=== PATIENT | female | born 1950 | race Caucasian/White ===

== ENCOUNTER 2020-12-23 21:35 | Inpatient (IN) | payer BC, MEDICARE ==
[~2020-12-23] VITALS: Ht 162.6 cm; Wt 83.0 kg
--- NOTE | 2020-12-23 22:05 | NUR ---
ED Nurse Note: Pt came in through ambulatory triage/wheelchair complaints of right hip pain from fall, AOx4, vitals stable ambulatory with moderate assitance
[2020-12-23 22:16] VITALS: BP 144/75
--- NOTE | 2020-12-23 22:20 | Emergency Room Report ---
History of Present Illness General Chief Complaint: Multiple Trauma/Fall Source: Patient Present Illness HPI 70-year-old female with no relevant past medical history here with right hip pain after a mechanical fall. Patient says that she tripped over a curb and landed on her right hip about 3 hours prior to come to the emergency department. She was able to stand up with assistance and get into her car and drive home. Says that she was able to stand and walk at home with the help of a walker but is having excruciating right hip pain. She never hit her head or had loss of consciousness. She is adamant that this was a mechanical fall. No headache, vision change, syncope, presyncope, chest pain, palpitation, shortness of breath, back pain, abdominal pain, nausea, vomiting, diarrhea, dysuria, focal numbness or weakness. Allergies: Coded Allergies: No Known Allergies (Unverified , 12/23/20) COVID-19 Screening Contact w/high risk pt: No Experienced COVID-19 symptoms?: No COVID-19 Testing performed CAGE CASHIER: No Nursing Documentation-[facility] Past Medical History: No Stated History Review of Systems All Other Systems: negative except mentioned in HPI Physical Exam Vital Signs Date Time Temp Pulse Resp B/P (MAP) Pulse Ox O2 Delivery O2 Flow Rate FiO2 12/23/20 22:10 98.1 103 18 144/75 (98) 98 Room Air Sp02 EP Interpretation: reviewed, normal General Appearance: no apparent distress, alert, non-toxic Head: normocephalic, atraumatic Eyes: bilateral eye normal inspection, bilateral eye PERRL ENT: hearing grossly normal, normal pharynx, no angioedema, normal voice Neck: full range of motion, supple/symm/no masses Respiratory: chest non-tender, lungs clear, normal breath sounds, speaking full sentences Cardiovascular #1: regular rate, rhythm, no edema Cardiovascular #2: 2+ carotid (R), 2+ carotid (L), 2+ radial (R), 2+ radial (L), 2+ dorsalis pedis (R), 2+ dorsalis pedis (L) Gastrointestinal: normal bowel sounds, non tender, soft, non-distended, no guarding, no rebound Rectal: deferred Genitourinary: normal inspection, no CVA tenderness Musculoskeletal: back normal, normal range of motion, gait/station normal, other - Tenderness on palpation of the right ASIS. Patient able to flex right hip with assistance. No leg shortening. Neurovascularly intact Neurologic: alert, motor strength/tone normal, oriented x3, sensory intact, responsive, speech normal Psychiatric: judgement/insight normal, memory normal, mood/affect normal, no suicidal/homicidal ideation Lymphatic: no adenopathy Medical Decision Making Diagnostic Impression: Primary Impression: Hip fracture, right ER Course X-ray right hip: Impression: Probable impacted right femoral neck fracture 70-year-old female here after mechanical fall. Patient complaining only of hip pain. Denied headache or head trauma or neck pain or neck stiffness. She was neurovascularly intact but complaining of right hip pain. X-ray revealed an impacted right femoral neck fracture. Patient was placed in a knee immobilizer. She was neurovascular intact before and after the knee immobilizer was placed. Patient to be admitted to [facility]. Last Vital Signs Date Time Temp Pulse Resp B/P (MAP) Pulse Ox O2 Delivery O2 Flow Rate FiO2 12/23/20 22:10 98.1 103 18 144/75 (98) 98 Room Air Referrals: NOT CHOSEN SEGUNDO/,REFERRING (PCP) Adrien Vilchis M.D. Dec 23, 2020 22:20
--- NOTE | 2020-12-23 22:34 | Diagnostic Imaging Report ---
EXAM: XR Right Hip With Pelvis When Performed, 2 or 3 Views CLINICAL HISTORY: PAIN TECHNIQUE: Two or three views of the right hip with pelvis when performed. COMPARISON: None FINDINGS: Bones/joints: There is a probable impacted right femoral neck fracture. The left hip joint appears maintained. No dislocation. Soft tissues: Unremarkable. IMPRESSION: Probable impacted right femoral neck fracture.
[2020-12-23] MEDS ORDERED: Morphine Sulfate 4mg/ml Inj (IV USE ONLY) IVP ONE (23:00)
--- NOTE | 2020-12-23 23:14 | NUR ---
ED Nurse Note: right Knee immobilizer placed
--- NOTE | 2020-12-23 23:32 | NUR ---
ED Nurse Note: Pblood specimen sent to lab
[2020-12-23 23:45] LABS: HEMATOCRIT 38.5 % (37.0-47.0); HEMOGLOBIN 12.8 G/DL (12.0-16.0); MEAN CORPUSCULAR VOLUME 101 FL (80-99); PLATELET COUNT 132 K/UL (150-450); RED BLOOD COUNT 3.83 M/UL (4.20-5.40); RED CELL DISTRIBUTION WIDTH 13.8 % (11.6-14.8)
[2020-12-23 23:56] LABS: ANION GAP 10 mmol/L (5-15); BLOOD UREA NITROGEN 28 mg/dL (7-18); CARBON DIOXIDE 26 MMOL/L (21-32); CHLORIDE 104 MMOL/L (98-107); CREATININE 0.9 MG/DL (0.55-1.30); POTASSIUM 3.9 MMOL/L (3.5-5.1); SODIUM 140 MMOL/L (136-145)
[2020-12-24] VITALS (14 sets, daily range): BP systolic 87–135; BP diastolic 50–74
[2020-12-24 00:06] LABS: ALANINE AMINOTRANSFERASE 43 U/L (12-78); ALBUMIN 4.1 G/DL (3.4-5.0); ALBUMIN/GLOBULIN RATIO 1.2 (1.0-2.7); ALKALINE PHOSPHATASE 125 U/L (46-116); ASPARTATE AMINO TRANSFERASE 32 U/L (15-37); BILIRUBIN,TOTAL 1.5 MG/DL (0.2-1.0)
[2020-12-24 00:08] LABS: BILIRUBIN,DIRECT 0.4 MG/DL (0.0-0.3)
--- NOTE | 2020-12-24 00:23 | NUR ---
TRANSFER TO FLOOR: Patient transferred to [facility] as ordered, per MD . Report given to Jenni. Belongings and medications at patient bedside declined offer to put in hospital safe, personal belongings form signed and sent with chart
--- NOTE | 2020-12-24 01:00 | NUR ---
Note bello in ED - 12/24/20 at 0140 by MARIEL TRANSFER TO FLOOR: Patient transferred to as ordered med surg, per MD . Report given to Jenni. Belongings and medications given sent with patient belongings form filled and signed sent with chart
--- NOTE | 2020-12-24 01:30 | NUR ---
NURSE NOTES: Left message for Dr Boston regarding patient's current level of pain. Patient requesting pain medication for right hip fracture. Patient aware we are awaiting call back from Dr Boston.
--- NOTE | 2020-12-24 03:05 | NUR ---
NURSE NOTES: Charge nurse left message for Dr Godoy regarding patient's current pain level. Still no call back from Dr Boston. Patient aware we are awaiting call back from both Dr Godoy and Dr Boston.
[2020-12-24 07:31] LABS: HEMATOCRIT 34.3 % (37.0-47.0); HEMOGLOBIN 11.3 G/DL (12.0-16.0); MEAN CORPUSCULAR VOLUME 100 FL (80-99); PLATELET COUNT 109 K/UL (150-450); RED BLOOD COUNT 3.42 M/UL (4.20-5.40); RED CELL DISTRIBUTION WIDTH 14.1 % (11.6-14.8); WHITE BLOOD COUNT 2.2 K/UL (4.8-10.8)
[2020-12-24 07:33] LABS: ALANINE AMINOTRANSFERASE 37 U/L (12-78); ALBUMIN 3.4 G/DL (3.4-5.0); ALBUMIN/GLOBULIN RATIO 1.1 (1.0-2.7); ALKALINE PHOSPHATASE 103 U/L (46-116); ANION GAP 9 mmol/L (5-15); ASPARTATE AMINO TRANSFERASE 30 U/L (15-37); BILIRUBIN,TOTAL 1.6 MG/DL (0.2-1.0); BLOOD UREA NITROGEN 26 mg/dL (7-18); CALCIUM 9.2 MG/DL (8.5-10.1); CARBON DIOXIDE 27 MMOL/L (21-32); CHLORIDE 105 MMOL/L (98-107); CREATININE 0.7 MG/DL (0.55-1.30); POTASSIUM 4.1 MMOL/L (3.5-5.1); SODIUM 141 MMOL/L (136-145)
[2020-12-24 07:36] LABS: BILIRUBIN,DIRECT 0.3 MG/DL (0.0-0.3)
--- NOTE | 2020-12-24 07:38 | NUR ---
NURSE NOTES: Report given to ALLY Farmer
--- NOTE | 2020-12-24 08:36 | Consultation ---
History of Present Illness General Date patient seen: Dec 24, 2020 Chief Complaint: Present Illness Allergies: Coded Allergies: No Known Allergies (Unverified , 12/23/20) Patient History Healthcare decision maker Resuscitation status Advanced Directive on File Physical Exam Last 24 Hour Vital Signs Date Time Temp Pulse Resp B/P (MAP) Pulse Ox O2 Delivery O2 Flow Rate FiO2 12/24/20 04:00 97.9 90 19 116/65 (82) 94 12/24/20 03:25 Room Air 12/24/20 02:21 97.9 12/24/20 01:35 97.9 96 19 135/74 (94) 94 12/23/20 23:49 98.1 12/23/20 22:16 98.1 18 144/75 98 Room Air 12/23/20 22:16 103 18 Room Air 12/23/20 22:10 98.1 103 18 144/75 (98) 98 Room Air Laboratory Tests Test 12/23/20 23:28 12/24/20 05:50 White Blood Count 3.0 K/UL (4.8-10.8) L 2.2 K/UL (4.8-10.8) L Red Blood Count 3.83 M/UL (4.20-5.40) L 3.42 M/UL (4.20-5.40) L Hemoglobin 12.8 G/DL (12.0-16.0) 11.3 G/DL (12.0-16.0) L Hematocrit 38.5 % (37.0-47.0) 34.3 % (37.0-47.0) L Mean Corpuscular Volume 101 FL (80-99) H 100 FL (80-99) H Mean Corpuscular Hemoglobin 33.4 PG (27.0-31.0) H 33.1 PG (27.0-31.0) H Mean Corpuscular Hemoglobin Concent 33.2 G/DL (32.0-36.0) 33.0 G/DL (32.0-36.0) Red Cell Distribution Width 13.8 % (11.6-14.8) 14.1 % (11.6-14.8) Platelet Count 132 K/UL (150-450) L 109 K/UL (150-450) L Mean Platelet Volume 7.7 FL (6.5-10.1) 8.6 FL (6.5-10.1) Neutrophils (%) (Auto) % (45.0-75.0) % (45.0-75.0) Lymphocytes (%) (Auto) % (20.0-45.0) % (20.0-45.0) Monocytes (%) (Auto) % (1.0-10.0) % (1.0-10.0) Eosinophils (%) (Auto) % (0.0-3.0) % (0.0-3.0) Basophils (%) (Auto) % (0.0-2.0) % (0.0-2.0) Sodium Level 140 MMOL/L (136-145) 141 MMOL/L (136-145) Potassium Level 3.9 MMOL/L (3.5-5.1) 4.1 MMOL/L (3.5-5.1) Chloride Level 104 MMOL/L (98-107) 105 MMOL/L (98-107) Carbon Dioxide Level 26 MMOL/L (21-32) 27 MMOL/L (21-32) Anion Gap 10 mmol/L (5-15) 9 mmol/L (5-15) Blood Urea Nitrogen 28 mg/dL (7-18) H 26 mg/dL (7-18) H Creatinine 0.9 MG/DL (0.55-1.30) 0.7 MG/DL (0.55-1.30) Estimat Glomerular Filtration Rate > 60 mL/min (>60) > 60 mL/min (>60) Glucose Level 110 MG/DL (74-106) H 106 MG/DL (74-106) Calcium Level 10.0 MG/DL (8.5-10.1) 9.2 MG/DL (8.5-10.1) Total Bilirubin 1.5 MG/DL (0.2-1.0) H 1.6 MG/DL (0.2-1.0) H Direct Bilirubin 0.4 MG/DL (0.0-0.3) H 0.3 MG/DL (0.0-0.3) Aspartate Amino Transf (AST/SGOT) 32 U/L (15-37) 30 U/L (15-37) Alanine Aminotransferase (ALT/SGPT) 43 U/L (12-78) 37 U/L (12-78) Alkaline Phosphatase 125 U/L (46-116) H 103 U/L (46-116) Total Protein 7.6 G/DL (6.4-8.2) 6.6 G/DL (6.4-8.2) Albumin 4.1 G/DL (3.4-5.0) 3.4 G/DL (3.4-5.0) Globulin 3.5 g/dL 3.2 g/dL Albumin/Globulin Ratio 1.2 (1.0-2.7) 1.1 (1.0-2.7) Neutrophils % (Manual) Pending Lymphocytes % (Manual) Pending Platelet Estimate Pending Platelet Morphology Pending Height (Feet): 5 Height (Inches): 5.00 Weight (Pounds): 170 Medications Current Medications Medications (Trade) Dose Ordered Sig/Jamie Route PRN Reason Start Time Stop Time Status Last Admin Dose Admin Acetaminophen (Tylenol) 650 mg Q4H PRN ORAL Mild Pain (Pain Scale 1-3) 12/24/20 01:45 01/23/21 01:44 12/24/20 01:51 Sodium Chloride 1,000 ml @ 70 mls/hr [id number] IV 12/24/20 08:00 01/23/21 07:59 Assessment/Plan Assessment/Plan: (1) Right hip pain (2) Right hip fx s/p fall seen dictated Roberto Carlos Perry Dec 24, 2020 08:36
[2020-12-24] MEDS ORDERED: HYDROcodone/Acetamin 5/325 tab ORAL PRN ×2 (08:45→15:45)
[2020-12-24] MEDS: Morphine Sulfate 2mg/ml Inj(IV/IM USE ONLY) IVP PRN ×3 (08:54→21:17)
--- NOTE | 2020-12-24 13:31 | Cardiac Electrophysiology PN ---
Subjective Subjective [id number] Objective Last 24 Hour Vital Signs Date Time Temp Pulse Resp B/P (MAP) Pulse Ox O2 Delivery O2 Flow Rate FiO2 12/24/20 12:24 99.0 12/24/20 11:53 99.0 108 18 102/65 (77) 94 12/24/20 10:53 97.9 12/24/20 09:24 97.9 12/24/20 08:00 98.5 91 18 101/67 (78) 96 12/24/20 04:00 97.9 90 19 116/65 (82) 94 12/24/20 03:25 Room Air 12/24/20 02:21 97.9 12/24/20 01:35 97.9 96 19 135/74 (94) 94 12/23/20 23:49 98.1 12/23/20 22:16 98.1 18 144/75 98 Room Air 12/23/20 22:16 103 18 Room Air 12/23/20 22:10 98.1 103 18 144/75 (98) 98 Room Air Laboratory Tests Test 12/23/20 23:28 12/24/20 05:50 White Blood Count 3.0 K/UL (4.8-10.8) L 2.2 K/UL (4.8-10.8) L Red Blood Count 3.83 M/UL (4.20-5.40) L 3.42 M/UL (4.20-5.40) L Hemoglobin 12.8 G/DL (12.0-16.0) 11.3 G/DL (12.0-16.0) L Hematocrit 38.5 % (37.0-47.0) 34.3 % (37.0-47.0) L Mean Corpuscular Volume 101 FL (80-99) H 100 FL (80-99) H Mean Corpuscular Hemoglobin 33.4 PG (27.0-31.0) H 33.1 PG (27.0-31.0) H Mean Corpuscular Hemoglobin Concent 33.2 G/DL (32.0-36.0) 33.0 G/DL (32.0-36.0) Red Cell Distribution Width 13.8 % (11.6-14.8) 14.1 % (11.6-14.8) Platelet Count 132 K/UL (150-450) L 109 K/UL (150-450) L Mean Platelet Volume 7.7 FL (6.5-10.1) 8.6 FL (6.5-10.1) Neutrophils (%) (Auto) % (45.0-75.0) % (45.0-75.0) Lymphocytes (%) (Auto) % (20.0-45.0) % (20.0-45.0) Monocytes (%) (Auto) % (1.0-10.0) % (1.0-10.0) Eosinophils (%) (Auto) % (0.0-3.0) % (0.0-3.0) Basophils (%) (Auto) % (0.0-2.0) % (0.0-2.0) Sodium Level 140 MMOL/L (136-145) 141 MMOL/L (136-145) Potassium Level 3.9 MMOL/L (3.5-5.1) 4.1 MMOL/L (3.5-5.1) Chloride Level 104 MMOL/L (98-107) 105 MMOL/L (98-107) Carbon Dioxide Level 26 MMOL/L (21-32) 27 MMOL/L (21-32) Anion Gap 10 mmol/L (5-15) 9 mmol/L (5-15) Blood Urea Nitrogen 28 mg/dL (7-18) H 26 mg/dL (7-18) H Creatinine 0.9 MG/DL (0.55-1.30) 0.7 MG/DL (0.55-1.30) Estimat Glomerular Filtration Rate > 60 mL/min (>60) > 60 mL/min (>60) Glucose Level 110 MG/DL (74-106) H 106 MG/DL (74-106) Calcium Level 10.0 MG/DL (8.5-10.1) 9.2 MG/DL (8.5-10.1) Total Bilirubin 1.5 MG/DL (0.2-1.0) H 1.6 MG/DL (0.2-1.0) H Direct Bilirubin 0.4 MG/DL (0.0-0.3) H 0.3 MG/DL (0.0-0.3) Aspartate Amino Transf (AST/SGOT) 32 U/L (15-37) 30 U/L (15-37) Alanine Aminotransferase (ALT/SGPT) 43 U/L (12-78) 37 U/L (12-78) Alkaline Phosphatase 125 U/L (46-116) H 103 U/L (46-116) Total Protein 7.6 G/DL (6.4-8.2) 6.6 G/DL (6.4-8.2) Albumin 4.1 G/DL (3.4-5.0) 3.4 G/DL (3.4-5.0) Globulin 3.5 g/dL 3.2 g/dL Albumin/Globulin Ratio 1.2 (1.0-2.7) 1.1 (1.0-2.7) Differential Total Cells Counted 100 Neutrophils % (Manual) 67 % (45-75) Lymphocytes % (Manual) 27 % (20-45) Monocytes % (Manual) 1 % (1-10) Eosinophils % (Manual) 1 % (0-3) Basophils % (Manual) 0 % (0-2) Band Neutrophils 4 % (0-8) Platelet Estimate Decreased L Platelet Morphology Normal Anisocytosis 1+ Macrocytosis 1+ Microbiology Date/Time Source Procedure Growth Status 12/24/20 12:00 Nasopharynx SARS-CoV-2 Antigen (Rapid)(JANES) - Final Complete Xavier Duncan MD Dec 24, 2020 13:31
[2020-12-24] MEDS ORDERED: EPINEPHrine 1mg/1ml Amp ONE (15:14)
[2020-12-24] MEDS ORDERED: cloNIDine 1000mcg/10ml inj ONE (15:14)
[2020-12-24] MEDS ORDERED: Bupivacaine 0.5% Inj 30 ml vial INJ ONE (15:15)
[2020-12-24] MEDS ORDERED: NeoSporin Gu Irrig 1ml Amp IRRIG ONE (15:16)
[2020-12-24] MEDS ORDERED: Hydrogen Peroxide 473ml Bottle TOPIC ONE (15:16)
[2020-12-24] MEDS ORDERED: Bacitracin 50000 Units Vial ONE (15:16)
--- NOTE | 2020-12-24 15:33 | Pre-Procedure Note/Attestation ---
Pre-Procedure Note/Attestation Complete Prior to Procedure Planned Procedure: right Procedure Narrative: closed reduction percutanous pinning hip Indications for Procedure Pre-Operative Diagnosis: right valgus implacted femoral neck fracture Attestation I attest that I discussed the nature of the procedure; its benefits; risks and complications; and alternatives (and the risks and benefits of such alternatives), prior to the procedure, with the patient (or the patient's legal medical detail representative). I attest that, if there was a reasonable possibility of needing a blood transfusion, the patient (or the patient's legal medical detail representative) was given the [facility] standardized written summary, pursuant to the [employer] Blood Safety Act ([place] Health and Safety Code # 1645, as amended). I attest that I re-evaluated the patient just prior to the surgery and that there has been no change in the patient's H&P, except as documented below: Rashel Castle MD Dec 24, 2020 15:33
--- NOTE | 2020-12-24 15:33 | Operative Note - PDOC ---
Operative Note Operative Note Pre-op Diagnosis: right valgus implacted femoral neck fracture Procedure: see op report Post-op Diagnosis: same as pre-op plus Operative Findings: consistent w/pre-op dx studies Anesthesia: regional Specimen: none Complications: none Condition: stable Estimated Blood Loss: none Implant(s) used?: Yes Rashel Castle MD Dec 24, 2020 15:33
[2020-12-24] MEDS ORDERED: Midazolam 2mg/2ml Inj ONE (15:37)
[2020-12-24] MEDS ORDERED: ePHEDrine 50mg/ml Inj ONE (15:43)
[2020-12-24] MEDS ORDERED: HYDROcodone/Acetamin 7.5/325 tab ORAL PRN (15:45)
[2020-12-24] MEDS ORDERED: Labetalol 5mg/ml 20ml vial IV PRN (15:45)
[2020-12-24] MEDS ORDERED: Hydromorphone 0.5mg/0.5ml inj IVP PRN (15:45)
[2020-12-24] MEDS ORDERED: fentaNYL 100 mcg/2 mL IV PRN (15:45)
[2020-12-24] MEDS ORDERED: oxyCODONE 5mg IR tab ORAL PRN (15:45)
[2020-12-24] MEDS ORDERED: LR 1000ml 1,000 ML IVLG SCH (15:45)
[2020-12-24] MEDS ORDERED: Metoclopramide 10mg/2ml Inj IVP PRN (15:45)
[2020-12-24] MEDS ORDERED: oxyCODONE HCL/Acetaminophen 5/325mg ORAL PRN (15:45)
[2020-12-24] MEDS ORDERED: LORazepam Inj 2mg/ml 1ml IV PRN (15:45)
[2020-12-24] MEDS ORDERED: Morphine Sulfate 2mg/ml Inj(IV/IM USE ONLY) IVP PRN (15:45)
[2020-12-24] MEDS ORDERED: DiphenhydrAMINE 50mg/ml Inj IVP PRN (15:45)
[2020-12-24] MEDS ORDERED: Midazolam 2mg/2ml Inj IVP PRN (15:45)
[2020-12-24] MEDS ORDERED: Atropine Sulfate 0.4mg/ml inj IVP PRN (15:45)
[2020-12-24] MEDS ORDERED: Meperidine 25mg/1ml Inj (FOR RIGORS ONLY) IV PRN (15:45)
[2020-12-24] MEDS ORDERED: Milk of Magnesia 30ml Ud ORAL PRN (15:45)
--- NOTE | 2020-12-24 15:45 | Anethesia Preoperative Eval ---
Anesthesia Pre-op PMH/ROS General Date of Evaluation: Dec 24, 2020 Time of Evaluation: 13:31 Anesthesiologist: Tuyet ASA Score: ASA 3 Mallampati Score Class I : Soft palate, uvula, fauces, pillars visible Class II: Soft palate, uvula, fauces visible Class III: Soft palate, base of uvula visible Class IV: Only hard plate visible Mallampati Classification: Class II Surgeon: Tin Diagnosis: R Hip Pain Surgical Procedure: ORIF R Hip Anesthesia History: none Family History: no anesthesia problems Allergies: Coded Allergies: No Known Allergies (Unverified , 12/23/20) Medications: see eMAR Patient NPO?: Yes Past Medical History Hematology/Immune: Reports: anemia, other - [place] Other: obesity - BMI 33 Anesthesia Pre-op Phys. Exam Physician Exam Last Vital Signs Date Time Temp Pulse Resp B/P (MAP) Pulse Ox O2 Delivery O2 Flow Rate FiO2 12/24/20 14:10 99.0 12/24/20 11:53 108 18 102/65 (77) 94 12/24/20 09:00 Room Air Constitutional: NAD Neurologic: CN 2-12 intact Cardiovascular: RRR Respiratory: CTA Gastrointestinal: S/NT/ND Airway Exam Mallampati Score: Class II MO: limited ROM: limited Teeth: missing, intact Anesthesia Pre-op A/P Labs Hematology Test 12/23/20 23:28 12/24/20 05:50 White Blood Count 3.0 K/UL (4.8-10.8) L 2.2 K/UL (4.8-10.8) L Red Blood Count 3.83 M/UL (4.20-5.40) L 3.42 M/UL (4.20-5.40) L Hemoglobin 12.8 G/DL (12.0-16.0) 11.3 G/DL (12.0-16.0) L Hematocrit 38.5 % (37.0-47.0) 34.3 % (37.0-47.0) L Mean Corpuscular Volume 101 FL (80-99) H 100 FL (80-99) H Mean Corpuscular Hemoglobin 33.4 PG (27.0-31.0) H 33.1 PG (27.0-31.0) H Mean Corpuscular Hemoglobin Concent 33.2 G/DL (32.0-36.0) 33.0 G/DL (32.0-36.0) Red Cell Distribution Width 13.8 % (11.6-14.8) 14.1 % (11.6-14.8) Platelet Count 132 K/UL (150-450) L 109 K/UL (150-450) L Mean Platelet Volume 7.7 FL (6.5-10.1) 8.6 FL (6.5-10.1) Neutrophils (%) (Auto) % (45.0-75.0) % (45.0-75.0) Lymphocytes (%) (Auto) % (20.0-45.0) % (20.0-45.0) Monocytes (%) (Auto) % (1.0-10.0) % (1.0-10.0) Eosinophils (%) (Auto) % (0.0-3.0) % (0.0-3.0) Basophils (%) (Auto) % (0.0-2.0) % (0.0-2.0) Differential Total Cells Counted 100 Neutrophils % (Manual) 67 % (45-75) Lymphocytes % (Manual) 27 % (20-45) Monocytes % (Manual) 1 % (1-10) Eosinophils % (Manual) 1 % (0-3) Basophils % (Manual) 0 % (0-2) Band Neutrophils 4 % (0-8) Platelet Estimate Decreased L Platelet Morphology Normal Anisocytosis 1+ Macrocytosis 1+ Chemistry Test 12/23/20 23:28 12/24/20 05:50 Sodium Level 140 MMOL/L (136-145) 141 MMOL/L (136-145) Potassium Level 3.9 MMOL/L (3.5-5.1) 4.1 MMOL/L (3.5-5.1) Chloride Level 104 MMOL/L (98-107) 105 MMOL/L (98-107) Carbon Dioxide Level 26 MMOL/L (21-32) 27 MMOL/L (21-32) Anion Gap 10 mmol/L (5-15) 9 mmol/L (5-15) Blood Urea Nitrogen 28 mg/dL (7-18) H 26 mg/dL (7-18) H Creatinine 0.9 MG/DL (0.55-1.30) 0.7 MG/DL (0.55-1.30) Estimat Glomerular Filtration Rate > 60 mL/min (>60) > 60 mL/min (>60) Glucose Level 110 MG/DL (74-106) H 106 MG/DL (74-106) Calcium Level 10.0 MG/DL (8.5-10.1) 9.2 MG/DL (8.5-10.1) Total Bilirubin 1.5 MG/DL (0.2-1.0) H 1.6 MG/DL (0.2-1.0) H Direct Bilirubin 0.4 MG/DL (0.0-0.3) H 0.3 MG/DL (0.0-0.3) Aspartate Amino Transf (AST/SGOT) 32 U/L (15-37) 30 U/L (15-37) Alanine Aminotransferase (ALT/SGPT) 43 U/L (12-78) 37 U/L (12-78) Alkaline Phosphatase 125 U/L (46-116) H 103 U/L (46-116) Total Protein 7.6 G/DL (6.4-8.2) 6.6 G/DL (6.4-8.2) Albumin 4.1 G/DL (3.4-5.0) 3.4 G/DL (3.4-5.0) Globulin 3.5 g/dL 3.2 g/dL Albumin/Globulin Ratio 1.2 (1.0-2.7) 1.1 (1.0-2.7) Risk Assessment & Plan Assessment: ASA 3 Plan: TIVA, Spinal Status Change Before Surgery: No Pre-Antibiotics Dru Gram Ancef IV Given Within 1 Hr of Incision: Yes Time Given: 16:01 Aldo Benz MD Dec 24, 2020 15:45
--- NOTE | 2020-12-24 15:47 | NUR ---
NURSE NOTES: patient is being transported to surgery unit, VS stable except subfebrile 99.0F and HR 102. Patient couldn't take off rings as she has hand slightly swollen. Patient was cleared by cardiology dr Duncan for surgery. Patient signed consent for surgery and blood transfusion in case it's needed.
[2020-12-24] MEDS ORDERED: Ketorolac 30mg Inj ONE (15:53)
[2020-12-24] MEDS ORDERED: Kenalog-40 1ml Vial ONE (15:53)
[2020-12-24] MEDS ORDERED: Bupivacaine w/Epi 0.25% 50ml vial INJ ONE (15:54)
[2020-12-24] MEDS ORDERED: Duramorph PF 5mg/10ml amp ONE (15:54)
[2020-12-24] MEDS ORDERED: NS Irrig 1000ml ONE (16:00)
[2020-12-24] MEDS ORDERED: Lidocaine 1% MPF 10mg/ml 5ml ONE (16:00)
[2020-12-24] MEDS ORDERED: Sterile Water Irrig 1000ml IRRIG ONE (16:00)
[2020-12-24] MEDS ORDERED: LR 1000ml ONE (16:00)
--- NOTE | 2020-12-24 16:07 | NUR ---
STOCK TRACERHAT BLOCK BENCH HAND 70 YO FEMALE FROM HOME TO ER CC RIGHT HIP PAIN S/P FALL SI: FEMORAL NECK FRACTURE T. 98.6 HR 105 RR 18 B/P 120/49 BUN 28 ALK PHOS 125 WBC 3.0 RIGHT FEMUR XRAY= Probable impacted right femoral neck fracture. IS: MORPHINE IV ADMITTED TO MED/SURG @ 0100 MED/SURG STATUS DCP RETURN HOME
--- NOTE | 2020-12-24 17:06 | Immediate Post-Op Evaluation ---
Immediate Post-Op Evalulation Immediate Post-Op Evalulation Procedure: ORIF R Hip Date of Evaluation: Dec 24, 2020 Time of Evaluation: 17:24 IV Fluids: 500 LR Blood Products: 0 Estimated Blood Loss: 50 Urinary Output: 0 Blood Pressure Systolic: 87 Blood Pressure Diastolic: 50 Pulse Rate: 99 Respiratory Rate: 16 O2 Sat by Pulse Oximetry: 95 Temperature (Fahrenheit): 98.1 Pain Score (1-10): 1 Nausea: No Vomiting: No Complications 0 Patient Status: awake, reacts, patent, none Hydration Status: adequate Dru Gram Ancef IV Given Within 1 Hr of Incision: Yes Time Given: 16:01 Aldo Benz MD Dec 24, 2020 17:06
--- NOTE | 2020-12-24 17:08 | 48 Hour Post Anesthesia Eval ---
Post Anesthesia Evaluation Procedure: ORIF R Hip Date of Evaluation: Dec 24, 2020 Time of Evaluation: 19:36 Blood Pressure Systolic: 105 0: 62 Pulse Rate: 83 Respiratory Rate: 18 Temperature (Fahrenheit): 98.3 O2 Sat by Pulse Oximetry: 100 Airway: patent Nausea: No Vomiting: No Pain Intensity: 1 Hydration Status: adequate Cardiopulmonary Status: Stable Mental Status/LOC: patient returned to baseline Follow-up Care/Observations: 0 Post-Anesthesia Complications: 0 Follow-up care needed: N/A Aldo Benz MD Dec 24, 2020 17:08
--- NOTE | 2020-12-24 18:50 | NUR ---
NURSE NOTES: report given to Dimitri CANALES from Tele, pt in room 210/2. Belongings checked against belongings list. Patient in NAD, lying in bed supine.
--- NOTE | 2020-12-24 19:15 | NUR ---
NURSE NOTES: recieved report from Hamida CANALES and 4E floor nurse. pt transferred from surgery. theodore catheter in place, R AC 20g, on educational psychologist and NC 3L. pt belongings accounted for in pt bed room with 4E floor nurse. vital signs 98.6 72 18 136/77 9 Addendum: 12/24/20 at 1920 by Dimitri Blanco RN 96% NC 3L, no pain. Endorsed by Hamida CANALES: Dc planning for tomorrow, DC arben when pt can ambulate, neuro check, adn regular diet. advance from clear liquids as ordered
--- NOTE | 2020-12-24 20:15 | NUR ---
NURSE NOTES: Received report from ALLY Mosley. Pt is awake, A/Ox4, no signs of acute distress. SR on lunchroom monitor. SpO2 100% on NC 3L. Breathing is even and unlabored. Knowles is intact and draining well to gravity matilde urine. R AC 20g is intact and running D5 1/2 NS KCl 20meq at 75cc/hr. Pt is complaining of pain 6/10 at the surgical site. Pain meds will be given. HOB elevated, side rails x2, call light within reach, bed alarmed, locked, and in lowest position. Will continue plan of care. Will continue to monitor.
--- NOTE | 2020-12-24 20:29 | Consultation ---
DATE OF CONSULTATION: 12/23/2020 CHIEF COMPLAINT: Right hip pain. HISTORY OF PRESENT ILLNESS: The patient is a 70-year-old female, who presented after a mechanical fall with right hip pain. She subsequently is diagnosed with femoral neck fracture. Orthopedic consultation was obtained for further care and recommendation. PAST MEDICAL HISTORY: Reviewed per intake chart. PAST SURGICAL HISTORY: Reviewed per intake chart. MEDICATIONS: Reviewed per intake chart. PHYSICAL EXAMINATION: GENERAL: Shows the patient is alert and oriented. She is resting comfortably on the exam room bed. VITAL SIGNS: Afebrile with stable vital signs. EXTREMITIES: Right hip examination shows pain with internal and external rotation. Positive sign. Posterior calf is soft. Dorsalis pedis +2. IMAGING: Right hip series reviewed did show a valgus-impacted femoral neck fracture. ASSESSMENT: Right valgus-impacted femoral neck fracture. DISCUSSION: At this point, what I recommend is to go ahead and proceed with closed reduction and percutaneous pinning of the right hip. We will admit her in anticipation of surgery tomorrow. She is going to be medically optimized. We will go ahead and arrange surgery for tomorrow. Alternatives discussed with the patient. All questions addressed. Rashel Castle M.D. DR: ALINE JOB#: [id number] CC:
--- NOTE | 2020-12-24 20:44 | Consultation ---
DATE OF CONSULTATION: 12/24/2020 CARDIOLOGY CONSULTATION CONSULTING PHYSICIAN: Xavier Duncan MD REFERRING PHYSICIAN: Lynne Godoy MD REASON FOR CONSULTATION: Preoperative clearance prior to hip surgery. HISTORY OF PRESENT ILLNESS: The patient is a 70-year-old lady with no significant past medical history who presented with right hip after a mechanical fall. Apparently, the patient tripped over a curb and landed on her right hip about three hours prior to coming to the emergency room. She was able to stand up with assist and get in the car and drive home. She apparently was able to stand and walk at home with help of a walker, but she was having excruciating right hip pain. Denies loss of consciousness, prior myocardial infarction, coronary artery disease, hypertension, or diabetes. The patient was evaluated in the emergency room, was found to have impacted right femoral neck fracture. Cardiology consultation was requested for preoperative clearance prior to hip surgery. REVIEW OF SYSTEMS: Negative other than what was mentioned in the history of present illness. PAST MEDICAL HISTORY: As mentioned above. FAMILY HISTORY: Noncontributory. SOCIAL HISTORY: She lives at home. Does not smoke or drink alcohol. PHYSICAL EXAMINATION: VITAL SIGNS: Show a blood pressure of 102/65, pulse is 108, respirations 18, and temperature 99. HEAD AND NECK: Showed no JVD. LUNGS: Clear. CARDIOVASCULAR: Regular S1 and S2 with no gallop or murmur. ABDOMEN: Soft. EXTREMITIES: No pitting edema. LABORATORY AND DIAGNOSTIC DATA: Her labs show white count 2.2, hemoglobin 11.7, hematocrit 34.3, and platelet count of 109. Sodium 141, potassium 4.1, BUN of 26, creatinine 0.7, and glucose of 106. ASSESSMENT AND PLAN: 1. Status post mechanical fall resulting in right hip fracture. The patient denies any coronary artery disease, congestive heart failure, or prior myocardial infarction. She does not smoke. Her 12-lead EKG today showed sinus tachycardia at a rate of 107 right bundle-branch block and left anterior fascicular block. Echocardiogram is pending at the time of this dictation 2. Bifascicular block with right bundle-branch block and left anterior fascicular block. The patient denies any syncope and is adamant. This was the result of a mechanical fall transfer the patient to telemetry for closer monitoring of her bifascicular block. 3. History of ovarian cancer in 2019, status post surgery and chemotherapy at [facility]. 4. Leukopenia, white count of only 2.2. Further evaluation by Hematology. Thank you very much for allowing me to participate in the care of this patient. Please do not hesitate to contact me for any questions regarding my evaluation. Sincerely, Xavier Duncan M.D. DR: Amilcar JOB#: [id number] CC:
[2020-12-24] MEDS ORDERED: oxyCONTIN 20mg tab ORAL SCH (21:00)
[2020-12-24] MEDS: D5 1/2NS w/KCl 20mEq 1,000 ML IV SCH (21:17)
[2020-12-24] MEDS: ceFAZolin 2gm/50ml Premix 50 ML IV SCH (21:18)
--- NOTE | 2020-12-24 22:29 | Operative Note - Dictated ---
DATE OF OPERATION: 12/23/2020 PREOPERATIVE DIAGNOSIS: Right femoral neck fracture, valgus-impacted, nondisplaced. POSTOPERATIVE DIAGNOSIS: Right femoral neck fracture, valgus-impacted, nondisplaced. PROCEDURES: Closed reduction and percutaneous pinning of right femoral neck fracture . SURGEON: Rashel Castle M.D. ANESTHESIA: Spinal. INDICATION FOR PROCEDURE: The patient is a pleasant female who sustained a mechanical fall. She was diagnosed with valgus-impacted femoral neck fracture, indicative of operative fixation. Risks, limitations, expectations, and complications of the procedures were discussed in detail. All questions were addressed. DESCRIPTION OF PROCEDURE: After informed consent was obtained, the patient was brought to the operating room. The patient was placed under spinal anesthesia. The patient was then carefully placed on the fracture table. Right hip was prepped and draped in a sterile manner. Time-out was performed. The skin was marked out. Skin incision was then made. A guidewire was placed along the inferior aspect of the neck. Once adequate position was confirmed in the inverted triangle pattern, 2 additional superiorly cannulated screws were placed. Once that was done, 75 mm, 75 mm, and 80 mm screw were placed. Sequential imaging of the hip at 360 degrees showed some prominence in one of the screws, which were replaced with a 75 mm screw. Once that was done, the instruments were removed. Portal sites were closed with 3-0 Monocryl sutures. Steri-Strips and sterile dressing were applied. ESTIMATED BLOOD LOSS: None. COMPLICATIONS: None. SPECIMENS: None. IMPLANTS: Include three 6.5 partially-threaded hip screws. Rashel Castle M.D. DR: ALINE JOB#: [id number] CC:
--- NOTE | 2020-12-24 22:45 | NUR ---
NURSE NOTES: Titrated 3L NC to 1L NC. Currently saturating 94-97%. No signs of respiratory distress noted Will continue to monitor. Will continue plan of care.
--- NOTE | 2020-12-24 23:14 | History and Physical Report ---
DATE OF ADMISSION: 12/23/2020 HISTORY OF PRESENT ILLNESS: Patient comes in initially status post fall yesterday. Patient tripped over the area in a parking lot. Patient has sustained a right femoral neck fracture. Patient has history of ovarian cyst as well as breast cancer. Patient complains of pain in the right hip where the fracture is. Otherwise, denies chest pain. Denies shortness of breath. Denies cough. Denies headache. Denies nausea, vomiting, or diarrhea. Denies orthopnea. Denies chest pain. PAST MEDICAL HISTORY: Significant for ovarian cyst, breast cancer. PAST SURGICAL HISTORY: Bilateral oophorectomy and fallopian tube removal, bilateral mastectomy. FAMILY HISTORY: Noncontributory. SOCIAL HISTORY: Has history of marijuana. Denies history of smoking. Denies history of alcohol abuse. MEDICATION: Only takes medication for breast cancer. ALLERGIES: No known allergies. REVIEW OF SYSTEMS: HEENT: Denies headaches. RESPIRATORY: Denies shortness of breath. Denies cough. CARDIOVASCULAR: Denies chest pain. No orthopnea. GASTROINTESTINAL: Denies nausea, vomiting, or diarrhea. EXTREMITIES: Reports right hip pain due to fracture. CENTRAL NERVOUS SYSTEM: Denies change in speech pattern. PHYSICAL EXAMINATION: VITAL SIGNS: Temperature is 97, pulse is 92, blood pressure is 114/61. HEENT: PERRLA. NECK: Supple. No lymphadenopathy. CHEST: Clear to auscultation. CARDIOVASCULAR: Regular rate and rhythm. No murmurs or extra sounds. GASTROINTESTINAL: Soft, nontender, nondistended. No organomegaly. EXTREMITIES: No edema. Decreased range of motion in the right hip due to pain. Otherwise, dorsal pedis pulses are present. Reflexes are equal on both sides. LABORATORY DATA: WBC of 3, hemoglobin of 12.8, platelets of 132. Sodium 140, potassium 3.9, BUN of 28, creatinine 0.9, glucose of 110. ASSESSMENT AND PLAN: Right femoral neck fracture. Dr. Rivera Hannah and Dr. Duncan been consulted to clear the patient for surgery and Dr. Boston for pain management. Dr. Castle is orthopedic on-call to the OR if surgery. Ali Hadadz, M.D. DR: CHYNA JOB#: [id number] CC:
[2020-12-25] VITALS: BP 113/54
[2020-12-25] MEDS: Morphine Sulfate 2mg/ml Inj(IV/IM USE ONLY) IVP PRN (01:54)
[2020-12-25 04:00] VITALS: BP 101/61
--- NOTE | 2020-12-25 04:16 | NUR ---
NURSE NOTES: Tried to wean pt down from 1L NC to RA, O2 saturation dropped from 94% to 89%. Encouraged pt to deep breathe, cough, and turn to prevent atelectasis. Pt appears to be anxious, stating that she has too many lines on her. RN explained all that the lines are necessary and will be removed when she is discharged.
[2020-12-25] MEDS: ceFAZolin 2gm/50ml Premix 50 ML IV SCH (06:07)
[2020-12-25] MEDS: D5 1/2NS w/KCl 20mEq 1,000 ML IV SCH (06:30)
--- NOTE | 2020-12-25 06:42 | Consultation ---
History of Present Illness General Chief Complaint: Multiple Trauma/Fall Present Illness Allergies: Coded Allergies: No Known Allergies (Unverified , 12/23/20) Patient History Healthcare decision maker Resuscitation status Advanced Directive on File Physical Exam Last 24 Hour Vital Signs Date Time Temp Pulse Resp B/P (MAP) Pulse Ox O2 Delivery O2 Flow Rate FiO2 12/25/20 04:00 99.0 100 20 101/61 (74) 94 12/25/20 00:41 102 12/25/20 00:00 98.4 100 20 113/54 (73) 94 12/24/20 21:00 Nasal Cannula 1.0 Nasal Cannula 1.0 12/24/20 20:00 98.2 99 20 111/57 (75) 100 12/24/20 18:20 98.7 92 20 114/61 100 Nasal Cannula 3 12/24/20 18:05 92 19 99/52 100 Nasal Cannula 3 12/24/20 17:50 96 17 100/54 100 Nasal Cannula 3 12/24/20 17:35 94 18 102/56 100 Simple Mask 6 12/24/20 17:25 96 19 102/52 100 Simple Mask 6 12/24/20 17:15 96 18 104/55 100 Simple Mask 6 12/24/20 17:10 97 21 102/54 100 Simple Mask 6 12/24/20 17:08 83 18 100 12/24/20 17:06 99 16 95 12/24/20 17:05 98.1 101 20 87/50 100 Simple Mask 6 12/24/20 15:30 99.0 102 19 118/68 (85) 93 12/24/20 14:10 99.0 12/24/20 12:24 99.0 12/24/20 11:53 99.0 108 18 102/65 (77) 94 12/24/20 10:53 97.9 12/24/20 09:24 97.9 12/24/20 09:00 Room Air 12/24/20 08:00 98.5 91 18 101/67 (78) 96 Intake and Output 12/24/20 12/25/20 19:00 07:00 Intake Total 700 ml 390 ml Output Total 250 ml 200 ml Balance 450 ml 190 ml Intake Oral 240 ml IV Total 700 ml 150 ml Output Urine Total 200 ml 200 ml Estimated Blood Loss 50 ml # Bowel Movements 1 Microbiology Date/Time Source Procedure Growth Status 12/24/20 12:00 Nasopharynx SARS-CoV-2 Antigen (Rapid)(JANES) - Final Complete Height (Feet): 5 Height (Inches): 4.00 Weight (Pounds): 183 Medications Current Medications Medications (Trade) Dose Ordered Sig/Jamie Route PRN Reason Start Time Stop Time Status Last Admin Dose Admin Acetaminophen (Tylenol) 650 mg Q4H PRN ORAL Mild Pain (Pain Scale 1-3) 12/24/20 01:45 01/23/21 01:44 12/24/20 10:23 Dextrose/ Electrolytes 1,000 ml @ 75 mls/hr [id number] IV 12/24/20 18:00 01/23/21 17:59 12/24/20 21:17 Docusate Sodium (Colace) 100 mg THREE TIMES A DAY ORAL 12/25/20 09:00 01/24/21 08:59 Enoxaparin Sodium (Lovenox) 40 mg DAILY SUBQ 12/25/20 09:00 01/04/21 08:59 Magnesium Hydroxide (Mom) 30 ml DAILYPRN PRN ORAL Constipation 12/24/20 15:45 01/23/21 15:44 Morphine Sulfate (Morphine Sulfate) 1 mg Q3H PRN IVP Pain scale 1-3 12/24/20 15:45 12/31/20 15:44 Morphine Sulfate (Morphine Sulfate) 2 mg Q3H PRN IVP Moderate Pain (Pain Scale 4-6) 12/24/20 15:45 12/31/20 15:44 12/25/20 01:54 Ondansetron HCl (Zofran) 4 mg Q6H PRN IVP Nausea & Vomiting 12/24/20 15:45 01/23/21 15:44 Oxycodone HCl (OxyCONTIN) 20 mg EVERY 12 HOURS ORAL 12/24/20 21:00 12/31/20 20:59 Oxycodone HCl (Roxicodone) 5 mg Q4H PRN ORAL Breakthrough Pain 12/24/20 15:45 12/31/20 15:44 Senna/Docusate Sodium (Graciela-Colace) 1 tab TWICE A DAY ORAL 12/25/20 09:00 01/24/21 08:59 Temazepam (RestoriL) 7.5 mg DAILYPRN PRN ORAL Insomnia 12/24/20 15:45 12/31/20 15:44 Assessment/Plan Assessment/Plan: Hematology Consultation REQ MD: Lynne Zhang Chief Complaint: Multiple Trauma/Fall RFC: Pancytopenia, Breast Cancer HPI 70-year-old female with no relevant past medical history here with right hip pain after a mechanical fall. Patient says that she tripped over a curb and landed on her right hip about 3 hours prior to come to the emergency department. She was able to stand up with assistance and get into her car and drive home. Says that she was able to stand and walk at home with the help of a walker but is having excruciating right hip pain. She never hit her head or had loss of consciousness. She is adamant that this was a mechanical fall. No headache, vision change, syncope, presyncope, chest pain, palpitation, shortness of breath, back pain, abdominal pain, nausea, vomiting, diarrhea, dysuria, focal numbness or weakness. She is s/p closed reduction and percutaneous pinning of the right hip, is with pancytopenia now, hx of breast cancer as noted before. Coded Allergies: No Known Allergies (Unverified , 12/23/20) COVID-19 Screening Contact w/high risk pt: No Experienced COVID-19 symptoms?: No COVID-19 Testing performed CONTACT LENS CUTTER: No Nursing Documentation-[facility] Past Medical History: No Stated History Review of Systems All Other Systems: negative except mentioned in HPI Physical Exam Sp02 EP Interpretation: reviewed, normal General Appearance: no apparent distress, alert, non-toxic Head: normocephalic, atraumatic Eyes: bilateral eye normal inspection, bilateral eye PERRL Neck: full range of motion, supple/symm/no masses Respiratory: chest non-tender, lungs clear, normal breath sounds, speaking full sentences Cardiovascular : regular rate, rhythm, no edema Gastrointestinal: normal bowel sounds, non tender Rectal: deferred Genitourinary: normal inspection, no CVA tenderness Musculoskeletal: back normal, normal range of motion, gait/station normal, other Neurologic: alert, motor strength/tone normal, oriented x3, sensory intact Psychiatric: judgement/insight normal, memory normal Lymphatic: no adenopathy Labs: reviewed Imaging: noted Assessment and Recs # Breast cancer, that has been resected, 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 Arias at [facility] # Pancytopenia -- likely due to use of lymparza, also has had chemotherapy in the past -> HOLD OFF ON LYMPARZA WHILE HERE --> she will resume when goes to rehab --> HOLD off excessive blood transfusions given has received them in the past --> smear has been noted --> wbc 2 --> neupogen prn # Hip fracture, right --> X-ray right hip: Impression: Probable impacted right femoral neck fracture --> s/p closed reduction and percutaneous pinning of the right hip # Dehydration --> goal of euvolemia # Dvt ppx scds Appreciate consultation and dw Rivera Cote MD Dec 25, 2020 06:42
--- NOTE | 2020-12-25 07:22 | NUR ---
NURSE HAND-OFF REPORT: Important Events on Shift:[transferred to unit] Patient Status: [stable] Diet: [regular] Pending Orders: [PT, theodore removal, dc] Pending Results/Labs:[NA] Pending MD notification:[NA] Latest Vital Signs: Temperature 99.0 , Pulse 100 , B/P 101 /61 , Respiratory Rate 20 , O2 SAT 94 , Nasal Cannula, O2 Flow Rate 1.0 . Vital Sign Comment: [Stable] EKG Rhythm: ST w/ BBB Rhythm change?: N MD Notified?: N - MD Response: Latest Rodrigues Fall Score: 55 Fall Risk: High Risk Safety Measures: Call light Within Reach, Bed Alarm Zone 1, Side Rails Side Rails x2, Bed position Low and Locked. Fall Precautions: Yellow Socks Report given to [Stephani Tenorio RN].
[2020-12-25 08:00] VITALS: BP 106/57
--- NOTE | 2020-12-25 08:39 | General Progress Note ---
Subjective Date patient seen: Dec 25, 2020 Time patient seen: 08:30 - am Constitutional: Reports: no symptoms HEENT: Reports: no symptoms Cardiovascular: Reports: no symptoms Respiratory: Reports: no symptoms Gastrointestinal/Abdominal: Reports: no symptoms Genitourinary: Reports: no symptoms Neurologic/Psychiatric: Reports: no symptoms Endocrine: Reports: no symptoms Hematologic/Lymphatic: Reports: no symptoms Allergies: Coded Allergies: No Known Allergies (Unverified , 12/23/20) Subjective Patient is in bed and denies pain at this time. Is s/p ORIF of right hip was started on Oxycontin 20mg BID, Oxycodone 5mg Q4H PRN and Morphine 1-2mg IV Q4H PRN. She is refusing the Oxycontin and does not want the Oxycodone. Objective Last 24 Hour Vital Signs Date Time Temp Pulse Resp B/P (MAP) Pulse Ox O2 Delivery O2 Flow Rate FiO2 12/25/20 04:00 99.0 100 20 101/61 (74) 94 12/25/20 00:41 102 12/25/20 00:00 98.4 100 20 113/54 (73) 94 12/24/20 21:00 Nasal Cannula 1.0 Nasal Cannula 1.0 12/24/20 20:00 98.2 99 20 111/57 (75) 100 12/24/20 18:20 98.7 92 20 114/61 100 Nasal Cannula 3 12/24/20 18:05 92 19 99/52 100 Nasal Cannula 3 12/24/20 17:50 96 17 100/54 100 Nasal Cannula 3 12/24/20 17:35 94 18 102/56 100 Simple Mask 6 12/24/20 17:25 96 19 102/52 100 Simple Mask 6 12/24/20 17:15 96 18 104/55 100 Simple Mask 6 12/24/20 17:10 97 21 102/54 100 Simple Mask 6 12/24/20 17:08 83 18 100 12/24/20 17:06 99 16 95 12/24/20 17:05 98.1 101 20 87/50 100 Simple Mask 6 12/24/20 15:30 99.0 102 19 118/68 (85) 93 12/24/20 14:10 99.0 12/24/20 12:24 99.0 12/24/20 11:53 99.0 108 18 102/65 (77) 94 12/24/20 10:53 97.9 12/24/20 09:24 97.9 12/24/20 09:00 Room Air Intake and Output 12/24/20 12/25/20 19:00 07:00 Intake Total 700 ml 390 ml Output Total 250 ml 200 ml Balance 450 ml 190 ml Intake Oral 240 ml IV Total 700 ml 150 ml Output Urine Total 200 ml 200 ml Estimated Blood Loss 50 ml # Bowel Movements 1 Laboratory Tests 12/25/20 08:05: Prothrombin Time [Pending], Prothromb Time International Ratio [Pending] Height (Feet): 5 Height (Inches): 4.00 Weight (Pounds): 183 General Appearance: no apparent distress, alert EENT: PERRL/EOMI, normal ENT inspection Neck: non-tender, normal alignment Cardiovascular: normal rate, regular rhythm Respiratory/Chest: lungs clear, normal breath sounds Abdomen: non tender, soft Extremities: other - bandages on right hip tenderness to palpation Edema: trace edema Neurologic: alert, oriented x 3 Skin: warm/dry Assessment/Plan Assessment/Plan: (1) Right hip pain (2) Right hip fx s/p fall and ORIF Patient will be discontinued off the Oxycontin and Oxycodone. We will start the [place] 5/325mg PO 1 tab Q6H PRN and continue the Morphine. D/w Dr. Boston and he concurred. Roberto Carlos Perry Dec 25, 2020 08:39
[2020-12-25] MEDS: Docusate 100mg cap ORAL SCH ×3 (09:00→18:41)
[2020-12-25] MEDS: Docusate Sod/Senna tab ORAL SCH ×2 (09:00→18:41)
[2020-12-25] MEDS ORDERED: Morphine Sulfate 2mg/ml Inj(IV/IM USE ONLY) IVP PRN (09:00)
[2020-12-25 09:29] LABS: INR 1.2 (0.9-1.1)
[2020-12-25] MEDS: Enoxaparin 40mg Inj SUBQ SCH (09:36)
--- NOTE | 2020-12-25 09:50 | NUR ---
PT EVALUATION NOTE Patient seen for initial evaluation and treatment initiated. Patient presents with R hip pain and impaired functional mobility s/p closed reduction and percutaneous pinning of R hip. Patient required min/mod assist to come to sitting at the EOB. Therapist was notified that patient had earlier episode of SVT. Patient was assisted back to bed, no further PT intervention. Patient will benefit from skilled inpatient PT intervention when medically stable to increase functional mobility and safety. Recommend discharge to ARU/SNF for short term rehab vs home with home PT depending on patient's progress once medically cleared by MD. Recommend FWW for ambulation and raised toilet seat for home use. Addendum: 12/25/20 at 1259 by ROBERTA JARQUIN PT Amended: Links added.
--- NOTE | 2020-12-25 10:14 | Consultation ---
DATE OF CONSULTATION: 12/24/2020 PAIN MANAGEMENT CONSULTATION CONSULTING PHYSICIAN: Samuel Boston MD REFERRING PHYSICIAN: Lynne Godoy MD PHYSICIAN WIRE SPLICER: RACHEL Sims CHIEF COMPLAINT: Right hip pain. HISTORY OF PRESENT ILLNESS: This is a 70-year-old female who is being seen on the Med/Surg floor of [facility] for initial pain management. The patient was admitted under the care of Dr. Godoy after a fall which occurred yesterday. It is a constant and acute pain, rating at 10/10, describing the pain as sharp pain, increasing with movement and is reduced with the medication. The patient was given morphine 4 mg IV in the emergency room yesterday, and due to the severity of her pain, we were consulted so that the patient will have adequate pain control while here in the hospital. She was referred to an orthopedic surgeon for possible ORIF. PAST MEDICAL HISTORY: Fallopian tube cancer. PAST SURGICAL HISTORY: Fallopian tube and ovary removal. SOCIAL HISTORY: Denies smoking tobacco, drinking alcohol, and IV drug abuse. ALLERGIES: No known drug allergies. MEDICATIONS: None noted. REVIEW OF SYSTEMS: Denies rash, fever, chills, sweating, dizziness, drowsiness, sore throat, or change in weight. No shortness of breath or chest pain. No nausea, vomiting, diarrhea, or blood in the stool. No dysuria. PHYSICAL EXAMINATION: GENERAL: Alert, awake, and oriented. VITAL SIGNS: Blood pressure 116/65, heart rate is 90, oxygen saturation is 94%, respirations 19, and temperature 98 degrees Fahrenheit. HEENT: PERRLA. NECK: Range of motion is full in all directions. No tenderness to paracervical muscles. No adenopathy. LUNGS: Decreased breath sounds bilaterally. HEART: Regular. ABDOMEN: Soft and nontender. BACK: Range of motion is full in flexion and extension. EXTREMITY: Upper and lower extremity range of motion is decreased due to the patient' condition. No cyanosis. No clubbing. Sensory is reduced. Reflexes are not obtainable. No adenopathy. ASSESSMENT AND PLAN: This is a 70-year-old female with right hip pain and right hip fracture, status post fall. The patient is still on morphine 2 mg IV every 4 hours as needed for severe pain, [place] 5/325 one tablet every 6 hours as needed for moderate pain. The patient was discussed with Dr. Boston and Dr. Boston concurred. We will follow the patient. Thank you very much for the courtesy of this consultation. Samuel Boston M.D. RACHEL Sims DR: KATT JOB#: [id number] CC: CHELO
--- NOTE | 2020-12-25 10:35 | NUR ---
PT NOTE Per Dr. Duncan, hold PT intervention at this time due to earlier episode of SVT. Susana CANALES notified, will follow.
[2020-12-25] MEDS: HYDROcodone/Acetamin 5/325 tab ORAL PRN ×3 (10:42→21:07)
[2020-12-25 12:00] VITALS: BP 115/63
--- NOTE | 2020-12-25 12:23 | Cardiac Electrophysiology PN ---
Assessment/Plan Assessment/Plan 1. Status post mechanical fall resulting in right hip fracture. The patient denies any coronary artery disease, congestive heart failure, or prior myocardial infarction. Her 12-lead EKG showed sinus tachycardia at a rate of 107 with right bundle- branch block and left anterior fascicular block. Echocardiogram showed Nl EF 2. Bifascicular block with right bundle-branch block and left anterior fascicular block. 3. SVT at rate 190s. Since didn't feel it likely has frequent episodes. Needs EPS and ablation TOO specially that in view of bifascicular block antiarrhythmics may progress the heart block Agreeable to the procedure. Will MARCIAL Limon 4. History of ovarian cancer in 2019, status post surgery and chemotherapy at [facility]. 5. Leukopenia, white count of only 2.2. Further evaluation by Hematology. DW Dr Godoy and RN Subjective Subjective Had SVT of sudden onset and termination at 9 AM lasting more than 10 minutes with HR 190! Did not feel it?! Had successful ORIF of hip yesterday. Objective Last 24 Hour Vital Signs Date Time Temp Pulse Resp B/P (MAP) Pulse Ox O2 Delivery O2 Flow Rate FiO2 12/25/20 08:00 105 12/25/20 04:00 99.0 100 20 101/61 (74) 94 12/25/20 00:41 102 12/25/20 00:00 98.4 100 20 113/54 (73) 94 12/24/20 21:00 Nasal Cannula 1.0 Nasal Cannula 1.0 12/24/20 20:00 98.2 99 20 111/57 (75) 100 12/24/20 18:20 98.7 92 20 114/61 100 Nasal Cannula 3 12/24/20 18:05 92 19 99/52 100 Nasal Cannula 3 12/24/20 17:50 96 17 100/54 100 Nasal Cannula 3 12/24/20 17:35 94 18 102/56 100 Simple Mask 6 12/24/20 17:25 96 19 102/52 100 Simple Mask 6 12/24/20 17:15 96 18 104/55 100 Simple Mask 6 12/24/20 17:10 97 21 102/54 100 Simple Mask 6 12/24/20 17:08 83 18 100 12/24/20 17:06 99 16 95 12/24/20 17:05 98.1 101 20 87/50 100 Simple Mask 6 12/24/20 15:30 99.0 102 19 118/68 (85) 93 12/24/20 14:10 99.0 12/24/20 12:24 99.0 Intake and Output 12/24/20 12/25/20 19:00 07:00 Intake Total 700 ml 390 ml Output Total 250 ml 200 ml Balance 450 ml 190 ml Intake Oral 240 ml IV Total 700 ml 150 ml Output Urine Total 200 ml 200 ml Estimated Blood Loss 50 ml # Bowel Movements 1 Laboratory Tests Test 12/25/20 08:05 Prothrombin Time 12.9 SEC (9.30-11.50) H Prothromb Time International Ratio 1.2 (0.9-1.1) H Microbiology Date/Time Source Procedure Growth Status 12/24/20 12:00 Nasopharynx SARS-CoV-2 Antigen (Rapid)(JANES) - Final Complete Objective HEAD AND NECK: Showed no JVD. LUNGS: Clear. CARDIOVASCULAR: Regular S1 and S2 with no gallop or murmur. ABDOMEN: Soft. EXTREMITIES: No pitting edema.S/P OROF hip Xavier Duncan MD Dec 25, 2020 12:23
--- NOTE | 2020-12-25 14:20 | NUR ---
T[employer] NOTE SW met w/ pt and completed home safety evaluation. Pt resides alone at [facility] [address] [facility] [place]. Pt reports her friend resides the front house. Pt was ambulatory w/o DME, driving her own car, and has been independent w/ ADLs and IADLs prior to admission. [place] Pt has hx of fall in the past. PT does not have children and she does not have a caregiver. Pt reports she agrees w/ either short term SNF and HH and she will discuss further w/ MD.
[2020-12-25 16:00] VITALS: BP 116/69
--- NOTE | 2020-12-25 19:10 | NUR ---
9240: Received report from previous RN. Pt awake in bed endorsing headache. Pt just received tylenol. Pt on 1L NC. Pt with theodore. No current infusions at this time. Bed in lowest position. Side rail x3. Call anderson within reach. Will continue to monitor. 0930: Was told that pt went into SVT. Pt asymptomatic. Denies any chest pain or feeling that her heart was racing. 1100: Cardiology came to bedside. Awaiting orders. PT to be delayed until pt started on new cardio meds. 1700: Pt was medicated for headache and slight R hip pain. Pt endorses all pain is now gone. Pt in NAD. Dinner given to pt. Safety precautions remain in place. 1929: Report given to ALLY Hannon. All questions answered. Care continues.
[2020-12-25 20:00] VITALS: BP 118/79
--- NOTE | 2020-12-25 20:43 | General Progress Note ---
Subjective ROS Limited/Unobtainable: Yes Allergies: Coded Allergies: No Known Allergies (Unverified , 12/23/20) Objective Last 24 Hour Vital Signs Date Time Temp Pulse Resp B/P (MAP) Pulse Ox O2 Delivery O2 Flow Rate FiO2 12/25/20 16:00 97.9 100 20 116/69 (85) 95 12/25/20 16:00 91 12/25/20 12:00 97.7 96 18 115/63 (80) 95 12/25/20 12:00 Nasal Cannula 1.0 Nasal Cannula 1.0 12/25/20 12:00 91 12/25/20 09:00 Nasal Cannula 1.0 Nasal Cannula 1.0 12/25/20 08:00 98.1 89 18 106/57 (73) 93 12/25/20 08:00 105 12/25/20 04:00 99.0 100 20 101/61 (74) 94 12/25/20 00:41 102 12/25/20 00:00 98.4 100 20 113/54 (73) 94 12/24/20 21:00 Nasal Cannula 1.0 Nasal Cannula 1.0 Intake and Output 12/24/20 12/25/20 19:00 07:00 Intake Total 700 ml 390 ml Output Total 250 ml 200 ml Balance 450 ml 190 ml Intake Oral 240 ml IV Total 700 ml 150 ml Output Urine Total 200 ml 200 ml Estimated Blood Loss 50 ml # Bowel Movements 1 Laboratory Tests 12/25/20 08:05: Prothrombin Time 12.9H, Prothromb Time International Ratio 1.2H Height (Feet): 5 Height (Inches): 4.00 Weight (Pounds): 183 Assessment/Plan Problem List: (1) Hip fracture, right ICD Codes: S72.001A - Fracture of unspecified part of neck of right femur, initial encounter for closed fracture SNOMED: 141357440 Status: progressing Assessment/Plan: s/p orif of hip fracture s/p SVT resolved abnormal ekg wants to go to snf for pt/ot Lynne Godoy MD Dec 25, 2020 20:43
[2020-12-26] VITALS (7 sets, daily range): BP systolic 100–132; BP diastolic 56–68
[2020-12-26 05:34] LABS: HEMOGLOBIN 11.8 G/DL (12.0-16.0); MEAN CORPUSCULAR VOLUME 103 FL (80-99); PLATELET COUNT 95 K/UL (150-450); RED CELL DISTRIBUTION WIDTH 14.4 % (11.6-14.8); WHITE BLOOD COUNT 2.2 K/UL (4.8-10.8)
[2020-12-26 06:02] LABS: ANION GAP 14 mmol/L (5-15); BLOOD UREA NITROGEN 28 mg/dL (7-18); CALCIUM 9.3 MG/DL (8.5-10.1); CARBON DIOXIDE 24 MMOL/L (21-32); CHLORIDE 105 MMOL/L (98-107); CREATININE 0.9 MG/DL (0.55-1.30); POTASSIUM 4.3 MMOL/L (3.5-5.1); SODIUM 143 MMOL/L (136-145)
--- NOTE | 2020-12-26 06:21 | Hematology/Onc Progress Note ---
Assessment/Plan Assessment/Plan Assessment and Recs # Breast cancer, that has been resected, 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 Arias at [facility] # Pancytopenia -- likely due to use of lymparza, also has had chemotherapy in the past -> HOLD OFF ON LYMPARZA WHILE HERE --> she will resume when goes to rehab --> HOLD off excessive blood transfusions given has received them in the past --> smear has been noted --> wbc 2-->2.2 --> hgb 11 ==> plt 95 --> neupogen prn # Hip fracture, right --> X-ray right hip: Impression: Probable impacted right femoral neck fracture --> s/p closed reduction and percutaneous pinning of the right hip # Dehydration --> goal of euvolemia # Dvt ppx scds Appreciate consultation and silvana Rn Subjective HEENT: Denies: no symptoms, eye pain, blurred vision, tearing, double vision, ear pain, ear discharge, nose pain, nose congestion, throat pain, throat swelling, mouth pain, mouth swelling, other Cardiovascular: Denies: no symptoms, chest pain, edema, irregular heart rate, lightheadedness, palpitations, syncope, other Respiratory: Denies: no symptoms, cough, shortness of breath, SOB with excertion, SOB at rest, sputum, wheezing, other Gastrointestinal/Abdominal: Denies: no symptoms, abdomen distended, abdominal pain, black stools, tarry stools, blood in stool, constipated, diarrhea, difficulty swallowing, nausea, poor appetite, poor fluid intake, rectal bleeding , vomiting, other Genitourinary: Denies: no symptoms, burning, discharge, frequency, flank pain, hematuria, incontinence, pain, urgency, other Neurologic/Psychiatric: Denies: no symptoms, anxiety, depressed, emotional problems, headache, numbness, paresthesia, pre-existing deficit, seizure, tingling, tremors, weakness, other Endocrine: Denies: no symptoms, excessive sweating, flushing, intolerance to cold, intolerance to heat, increased hunger, increased thirst, increased urine, unexplained weight gain, unexplained weight loss, other Hematologic/Lymphatic: Denies: no symptoms, anemia, easy bleeding, easy bruising, adenopathy, other Allergies: Coded Allergies: No Known Allergies (Unverified , 12/23/20) Subjective 12/26 surgery went well with Dr. Castle, recovering, this am sleeping comfortably Objective Objective Current Medications Medications (Trade) Dose Ordered Sig/Jamie Route PRN Reason Start Time Stop Time Status Last Admin Dose Admin Acetaminophen (Tylenol) 650 mg Q4H PRN ORAL Mild Pain (Pain Scale 1-3) 12/24/20 01:45 01/23/21 01:44 12/26/20 00:55 Acetaminophen/ Hydrocodone Bitart ([place] 5/325) 1 tab Q6H PRN ORAL Moderate Pain (Pain Scale 4-6) 12/25/20 09:00 01/01/21 08:59 12/25/20 21:07 Docusate Sodium (Colace) 100 mg THREE TIMES A DAY ORAL 12/25/20 09:00 01/24/21 08:59 12/25/20 18:41 Enoxaparin Sodium (Lovenox) 40 mg DAILY SUBQ 12/25/20 09:00 01/04/21 08:59 12/25/20 09:36 Magnesium Hydroxide (Mom) 30 ml DAILYPRN PRN ORAL Constipation 12/24/20 15:45 01/23/21 15:44 Morphine Sulfate (Morphine Sulfate) 2 mg Q4H PRN IVP severe pain 12/25/20 09:00 01/01/21 08:59 Ondansetron HCl (Zofran) 4 mg Q6H PRN IVP Nausea & Vomiting 12/24/20 15:45 01/23/21 15:44 Senna/Docusate Sodium (Graciela-Colace) 1 tab TWICE A DAY ORAL 12/25/20 09:00 01/24/21 08:59 12/25/20 18:41 Temazepam (RestoriL) 7.5 mg DAILYPRN PRN ORAL Insomnia 12/24/20 15:45 12/31/20 15:44 12/26/20 00:54 Last 24 Hour Vital Signs Date Time Temp Pulse Resp B/P (MAP) Pulse Ox O2 Delivery O2 Flow Rate FiO2 12/26/20 04:00 84 12/26/20 04:00 99.1 20 111/64 (80) 96 12/26/20 01:25 98.8 12/26/20 00:00 98.8 18 100/56 (71) 94 12/25/20 21:37 98.2 12/25/20 21:00 Nasal Cannula 1.0 Nasal Cannula 1.0 12/25/20 20:00 104 12/25/20 20:00 97.7 18 118/79 (92) 94 12/25/20 16:00 97.9 100 20 116/69 (85) 95 12/25/20 16:00 91 12/25/20 12:00 97.7 96 18 115/63 (80) 95 12/25/20 12:00 Nasal Cannula 1.0 Nasal Cannula 1.0 12/25/20 12:00 91 12/25/20 09:00 Nasal Cannula 1.0 Nasal Cannula 1.0 12/25/20 08:00 98.1 89 18 106/57 (73) 93 12/25/20 08:00 105 12/25/20 04:00 99.0 100 20 101/61 (74) 94 12/25/20 00:41 102 12/25/20 00:00 98.4 100 20 113/54 (73) 94 12/24/20 21:00 Nasal Cannula 1.0 Nasal Cannula 1.0 12/24/20 20:00 98.2 99 20 111/57 (75) 100 12/24/20 18:20 98.7 92 20 114/61 100 Nasal Cannula 3 12/24/20 18:05 92 19 99/52 100 Nasal Cannula 3 12/24/20 17:50 96 17 100/54 100 Nasal Cannula 3 12/24/20 17:35 94 18 102/56 100 Simple Mask 6 12/24/20 17:25 96 19 102/52 100 Simple Mask 6 12/24/20 17:15 96 18 104/55 100 Simple Mask 6 12/24/20 17:10 97 21 102/54 100 Simple Mask 6 12/24/20 17:08 83 18 100 12/24/20 17:06 99 16 95 12/24/20 17:05 98.1 101 20 87/50 100 Simple Mask 6 12/24/20 15:30 99.0 102 19 118/68 (85) 93 2/22/21 14:10 99.0 12/24/20 12:24 99.0 12/24/20 11:53 99.0 108 18 102/65 (77) 94 12/24/20 10:53 97.9 12/24/20 09:24 97.9 12/24/20 09:00 Room Air 12/24/20 08:00 98.5 91 18 101/67 (78) 96 Intake and Output 12/25/20 12/26/20 19:00 07:00 Intake Total 350 ml Output Total 350 ml 600 ml Balance 0 ml -600 ml Intake Oral 350 ml Output Urine Total 350 ml 600 ml Labs Test 12/23/20 23:28 12/24/20 05:50 12/25/20 08:05 12/26/20 04:20 White Blood Count 3.0 K/UL (4.8-10.8) 2.2 K/UL (4.8-10.8) 2.2 K/UL (4.8-10.8) Red Blood Count 3.83 M/UL (4.20-5.40) 3.42 M/UL (4.20-5.40) 3.50 M/UL (4.20-5.40) Hemoglobin 12.8 G/DL (12.0-16.0) 11.3 G/DL (12.0-16.0) 11.8 G/DL (12.0-16.0) Hematocrit 38.5 % (37.0-47.0) 34.3 % (37.0-47.0) 36.0 % (37.0-47.0) Mean Corpuscular Volume 101 FL (80-99) 100 FL (80-99) 103 FL (80-99) Mean Corpuscular Hemoglobin 33.4 PG (27.0-31.0) 33.1 PG (27.0-31.0) 33.8 PG (27.0-31.0) Mean Corpuscular Hemoglobin Concent 33.2 G/DL (32.0-36.0) 33.0 G/DL (32.0-36.0) 32.8 G/DL (32.0-36.0) Red Cell Distribution Width 13.8 % (11.6-14.8) 14.1 % (11.6-14.8) 14.4 % (11.6-14.8) Platelet Count 132 K/UL (150-450) 109 K/UL (150-450) 95 K/UL (150-450) Mean Platelet Volume 7.7 FL (6.5-10.1) 8.6 FL (6.5-10.1) 7.5 FL (6.5-10.1) Neutrophils (%) (Auto) % (45.0-75.0) % (45.0-75.0) % (45.0-75.0) Lymphocytes (%) (Auto) % (20.0-45.0) % (20.0-45.0) % (20.0-45.0) Monocytes (%) (Auto) % (1.0-10.0) % (1.0-10.0) % (1.0-10.0) Eosinophils (%) (Auto) % (0.0-3.0) % (0.0-3.0) % (0.0-3.0) Basophils (%) (Auto) % (0.0-2.0) % (0.0-2.0) % (0.0-2.0) Sodium Level 140 MMOL/L (136-145) 141 MMOL/L (136-145) 143 MMOL/L (136-145) Potassium Level 3.9 MMOL/L (3.5-5.1) 4.1 MMOL/L (3.5-5.1) 4.3 MMOL/L (3.5-5.1) Chloride Level 104 MMOL/L (98-107) 105 MMOL/L (98-107) 105 MMOL/L (98-107) Carbon Dioxide Level 26 MMOL/L (21-32) 27 MMOL/L (21-32) 24 MMOL/L (21-32) Anion Gap 10 mmol/L (5-15) 9 mmol/L (5-15) 14 mmol/L (5-15) Blood Urea Nitrogen 28 mg/dL (7-18) 26 mg/dL (7-18) 28 mg/dL (7-18) Creatinine 0.9 MG/DL (0.55-1.30) 0.7 MG/DL (0.55-1.30) 0.9 MG/DL (0.55-1.30) Estimat Glomerular Filtration Rate > 60 mL/min (>60) > 60 mL/min (>60) > 60 mL/min (>60) Glucose Level 110 MG/DL (74-106) 106 MG/DL (74-106) 103 MG/DL (74-106) Calcium Level 10.0 MG/DL (8.5-10.1) 9.2 MG/DL (8.5-10.1) 9.3 MG/DL (8.5-10.1) Total Bilirubin 1.5 MG/DL (0.2-1.0) 1.6 MG/DL (0.2-1.0) Direct Bilirubin 0.4 MG/DL (0.0-0.3) 0.3 MG/DL (0.0-0.3) Aspartate Amino Transf (AST/SGOT) 32 U/L (15-37) 30 U/L (15-37) Alanine Aminotransferase (ALT/SGPT) 43 U/L (12-78) 37 U/L (12-78) Alkaline Phosphatase 125 U/L (46-116) 103 U/L (46-116) Total Protein 7.6 G/DL (6.4-8.2) 6.6 G/DL (6.4-8.2) Albumin 4.1 G/DL (3.4-5.0) 3.4 G/DL (3.4-5.0) Globulin 3.5 g/dL 3.2 g/dL Albumin/Globulin Ratio 1.2 (1.0-2.7) 1.1 (1.0-2.7) Differential Total Cells Counted 100 Neutrophils % (Manual) 67 % (45-75) Lymphocytes % (Manual) 27 % (20-45) Monocytes % (Manual) 1 % (1-10) Eosinophils % (Manual) 1 % (0-3) Basophils % (Manual) 0 % (0-2) Band Neutrophils 4 % (0-8) Platelet Estimate Decreased Platelet Morphology Normal Anisocytosis 1+ Macrocytosis 1+ Prothrombin Time 12.9 SEC (9.30-11.50) Prothromb Time International Ratio 1.2 (0.9-1.1) Height (Feet): 5 Height (Inches): 4.00 Weight (Pounds): 183 Objective Sp02 EP Interpretation: reviewed, normal General Appearance: no apparent distress, alert, non-toxic Head: normocephalic, atraumatic Eyes: bilateral eye normal inspection, bilateral eye PERRL Neck: full range of motion, supple/symm/no masses Respiratory: chest non-tender, lungs clear, normal breath sounds, speaking full sentences Cardiovascular : regular rate, rhythm, no edema Gastrointestinal: normal bowel sounds, non tender Rectal: deferred Genitourinary: normal inspection, no CVA tenderness Musculoskeletal: back normal, normal range of motion, gait/station normal, other Neurologic: alert, motor strength/tone normal, oriented x3, sensory intact Psychiatric: judgement/insight normal, memory normal Lymphatic: no adenopathy Rivera Hannah MD Dec 26, 2020 06:21
--- NOTE | 2020-12-26 07:16 | NUR ---
NURSE HAND-OFF REPORT: Important Events on Shift: Patient Status: Diet: Pending Orders: Pending Results/Labs: Pending MD notification: Latest Vital Signs: Temperature 99.1 , Pulse 84 , B/P 111 /64 , Respiratory Rate 20 , O2 SAT 96 , Nasal Cannula, O2 Flow Rate 1.0 . Vital Sign Comment: EKG Rhythm: sr with bbb Rhythm change?: N MD Notified?: N - MD Response: Latest Rodrigues Fall Score: 55 Fall Risk: High Risk Safety Measures: Call light Within Reach, Bed Alarm Zone 1, Side Rails Side Rails x2, Bed position Low and Locked. Fall Precautions: Yellow Socks Report given to Susana.
--- NOTE | 2020-12-26 07:40 | NUR ---
NURSE NOTES: Report Handwritten by Riddhi Hoyt,patient awake,eating breakfast,with Oxygen,theodore catheter,sitting up on bed,dressing on right hip dry intact,made comfortable,I introduced myself made aware let me her needs
[2020-12-26] MEDS: Docusate Sod/Senna tab ORAL SCH ×2 (08:30→17:48)
[2020-12-26] MEDS: Docusate 100mg cap ORAL SCH ×3 (08:30→17:48)
--- NOTE | 2020-12-26 08:38 | General Progress Note ---
Subjective Date patient seen: Dec 26, 2020 Time patient seen: 07:45 - am Constitutional: Reports: no symptoms HEENT: Reports: no symptoms Cardiovascular: Reports: no symptoms Respiratory: Reports: no symptoms Gastrointestinal/Abdominal: Reports: no symptoms Genitourinary: Reports: no symptoms Neurologic/Psychiatric: Reports: no symptoms Endocrine: Reports: no symptoms Hematologic/Lymphatic: Reports: no symptoms Allergies: Coded Allergies: No Known Allergies (Unverified , 12/23/20) Subjective Patient reports pain has been tolerated on the medication and is doing PT at the best of her abilities. No new complaints at this time. Objective Last 24 Hour Vital Signs Date Time Temp Pulse Resp B/P (MAP) Pulse Ox O2 Delivery O2 Flow Rate FiO2 12/26/20 04:00 84 12/26/20 04:00 99.1 20 111/64 (80) 96 12/26/20 01:25 98.8 12/26/20 00:00 98.8 18 100/56 (71) 94 12/25/20 21:37 98.2 12/25/20 21:00 Nasal Cannula 1.0 Nasal Cannula 1.0 12/25/20 20:00 104 12/25/20 20:00 97.7 18 118/79 (92) 94 12/25/20 16:00 97.9 100 20 116/69 (85) 95 12/25/20 16:00 91 12/25/20 12:00 97.7 96 18 115/63 (80) 95 12/25/20 12:00 Nasal Cannula 1.0 Nasal Cannula 1.0 12/25/20 12:00 91 12/25/20 09:00 Nasal Cannula 1.0 Nasal Cannula 1.0 Intake and Output 12/25/20 12/26/20 19:00 07:00 Intake Total 350 ml Output Total 350 ml 600 ml Balance 0 ml -600 ml Intake Oral 350 ml Output Urine Total 350 ml 600 ml Laboratory Tests 12/26/20 04:20: White Blood Count 2.2L, Red Blood Count 3.50L, Hemoglobin 11.8L, Hematocrit 36.0L, Mean Corpuscular Volume 103H, Mean Corpuscular Hemoglobin 33.8H, Mean Corpuscular Hemoglobin Concent 32.8, Red Cell Distribution Width 14.4, Platelet Count 95L, Mean Platelet Volume 7.5, Neutrophils (%) (Auto) , Lymphocytes (%) (Auto) , Monocytes (%) (Auto) , Eosinophils (%) (Auto) , Basophils (%) (Auto) , Neutrophils % (Manual) [Pending], Lymphocytes % (Manual) [Pending], Platelet Estimate [Pending], Platelet Morphology [Pending], Sodium Level 143, Potassium Level 4.3, Chloride Level 105, Carbon Dioxide Level 24, Anion Gap 14, Blood Urea Nitrogen 28H, Creatinine 0.9, Estimat Glomerular Filtration Rate > 60, Glucose Level 103, Calcium Level 9.3 Height (Feet): 5 Height (Inches): 4.00 Weight (Pounds): 183 General Appearance: no apparent distress, alert EENT: PERRL/EOMI, normal ENT inspection Neck: non-tender, normal alignment Cardiovascular: normal rate, regular rhythm Respiratory/Chest: lungs clear, normal breath sounds Abdomen: non tender, soft Extremities: swelling Edema: trace edema Neurologic: alert, oriented x 3 Assessment/Plan Assessment/Plan: (1) Right hip pain (2) Right hip fx s/p fall and ORIF Patient will be continued on the [place] and Morphine. D/w Dr. Boston and he concurred. Roberto Carlos Perry Dec 26, 2020 08:38
[2020-12-26] MEDS: Enoxaparin 40mg Inj SUBQ SCH (10:10)
--- NOTE | 2020-12-26 10:20 | Diagnostic Imaging Report ---
Indication: Reason For Exam: FX Technique: XRAY Hip Routine 2v+ w/Pelv- R Fluoroscopy time: 50.4; seconds DAP: [id number] mGym2 Comparison: None. Findings: Intraoperative views of the right hip demonstrate a fracture of the femoral neck with placement of 3 screws. Impression: Placement of screws fixing a fracture of the femoral neck.
--- NOTE | 2020-12-26 10:49 | NUR ---
NURSE NOTES: Patient worked with physical therapy,did well,like getting out bed,HR 96-104,no SVT,like sitting up on bed less pain on hip,lidocaine patch applied as ordered
--- NOTE | 2020-12-26 12:17 | Cardiac Electrophysiology PN ---
Assessment/Plan Assessment/Plan 1. Status post mechanical fall resulting in right hip fracture. No known coronary artery disease, congestive heart failure, or prior myocardial infarction. Her 12-lead EKG showed sinus tachycardia at a rate of 107 with right bundle- branch block and left anterior fascicular block. Echocardiogram showed Nl EF. Fall could have been precipitated by SVT 2. Bifascicular block with right bundle-branch block and left anterior fasc icular block. 3. SVT at rate 190s. Since didn't feel it likely has frequent episodes. Needs EPS and ablation TOO specially that has bifascicular block and antiarrhythmics may worsen the heart block Agreeable to the procedure. Will do after ARU completed either at [facility] or [facility] 4. History of ovarian cancer in 2019, status post surgery and chemotherapy at [facility]. 5. Leukopenia, white count of only 2.2. Further evaluation by Hematology. DW Dr Godoy and RN Subjective Subjective Had SVT of sudden onset and termination at 9 AM lasting more than 10 minutes with HR 190! on 12/25/20 Had successful ORIF of hip on 12/25/20 and now working withthe therapist Objective Last 24 Hour Vital Signs Date Time Temp Pulse Resp B/P (MAP) Pulse Ox O2 Delivery O2 Flow Rate FiO2 12/26/20 04:00 84 12/26/20 04:00 99.1 20 111/64 (80) 96 12/26/20 01:25 98.8 12/26/20 00:00 98.8 18 100/56 (71) 94 12/25/20 21:37 98.2 12/25/20 21:00 Nasal Cannula 1.0 Nasal Cannula 1.0 12/25/20 20:00 104 12/25/20 20:00 97.7 18 118/79 (92) 94 12/25/20 16:00 97.9 100 20 116/69 (85) 95 12/25/20 16:00 91 Intake and Output 12/25/20 12/26/20 19:00 07:00 Intake Total 350 ml Output Total 350 ml 600 ml Balance 0 ml -600 ml Intake Oral 350 ml Output Urine Total 350 ml 600 ml Laboratory Tests Test 12/26/20 04:20 White Blood Count 2.2 K/UL (4.8-10.8) L Red Blood Count 3.50 M/UL (4.20-5.40) L Hemoglobin 11.8 G/DL (12.0-16.0) L Hematocrit 36.0 % (37.0-47.0) L Mean Corpuscular Volume 103 FL (80-99) H Mean Corpuscular Hemoglobin 33.8 PG (27.0-31.0) H Mean Corpuscular Hemoglobin Concent 32.8 G/DL (32.0-36.0) Red Cell Distribution Width 14.4 % (11.6-14.8) Platelet Count 95 K/UL (150-450) L Mean Platelet Volume 7.5 FL (6.5-10.1) Neutrophils (%) (Auto) % (45.0-75.0) Lymphocytes (%) (Auto) % (20.0-45.0) Monocytes (%) (Auto) % (1.0-10.0) Eosinophils (%) (Auto) % (0.0-3.0) Basophils (%) (Auto) % (0.0-2.0) Differential Total Cells Counted 100 Neutrophils % (Manual) 72 % (45-75) Lymphocytes % (Manual) 26 % (20-45) Monocytes % (Manual) 1 % (1-10) Eosinophils % (Manual) 1 % (0-3) Basophils % (Manual) 0 % (0-2) Band Neutrophils 0 % (0-8) Platelet Estimate Decreased L Platelet Morphology Normal Macrocytosis 1+ Sodium Level 143 MMOL/L (136-145) Potassium Level 4.3 MMOL/L (3.5-5.1) Chloride Level 105 MMOL/L (98-107) Carbon Dioxide Level 24 MMOL/L (21-32) Anion Gap 14 mmol/L (5-15) Blood Urea Nitrogen 28 mg/dL (7-18) H Creatinine 0.9 MG/DL (0.55-1.30) Estimat Glomerular Filtration Rate > 60 mL/min (>60) Glucose Level 103 MG/DL (74-106) Calcium Level 9.3 MG/DL (8.5-10.1) Microbiology Date/Time Source Procedure Growth Status 12/24/20 12:00 Nasopharynx SARS-CoV-2 Antigen (Rapid)(JANES) - Final Complete Objective HEAD AND NECK: Showed no JVD. LUNGS: Clear. CARDIOVASCULAR: Regular S1 and S2 with no gallop or murmur. ABDOMEN: Soft. EXTREMITIES: No pitting edema.S/P OROF hip Xavier Duncan MD Dec 26, 2020 12:17
--- NOTE | 2020-12-26 15:26 | NUR ---
NURSE NOTES: Physical therapy work with her again this afternoon,no SVT HR 96-108,tolerated
--- NOTE | 2020-12-26 16:15 | NUR ---
NURSE HAND-OFF REPORT: Important Events on Shift:N Patient Status: stable Diet: regular Pending Orders: N Pending Results/Labs:N Pending MD notification:YVROSE Gee 12/25/20 order Latest Vital Signs: Temperature 98.0 , Pulse 95 , B/P 127 /62 , Respiratory Rate 20 , O2 SAT 90 , Nasal Cannula, O2 Flow Rate 1.0 . Vital Sign Comment: EKG Rhythm: SR,BBB Rhythm change?: N MD Notified?: N - MD Response: Latest Rodrigues Fall Score: 60 Fall Risk: High Risk Safety Measures: Call light Within Reach, Bed Alarm Zone 1, Side Rails Side Rails x2, Bed position Low and Locked. Fall Precautions: Yellow Socks Report given to .
--- NOTE | 2020-12-26 16:15 | NUR ---
NURSE NOTES: Received pt from SDU CAROL Dunbar, pt is awake and alert, pt has NC 1lit pt is on continues heart monitoring. Pt has intact IV access RAC 20G SL. pt has dressing on surgery site on R hip, dressing is intact. pt came in with Knowles but RN D/C Knowles upon coming per order and pt had Urin after D/C Knowles. Pt is eating dinner by observation. skin is intact. all needs attended, bed is locked and is in the lowest position, call light within easy reach. will continue to monitor.
--- NOTE | 2020-12-26 16:15 | NUR ---
NURSE NOTES: Received pt from ILU CAROL Dunbar, pt is awake and alert, pt has NC 1lit pt is on continues heart monitoring. Pt has intact TLC RIJ SL. Pt is eating breakfast by observation. all needs attended, bed is locked and is in the lowest position, call light within easy reach. will continue to monitor. Addendum: 12/26/20 at 1922 by Alex Israel RN ERROR WRONG PT PLEASE DISREGARD THIS NOTE.
[2020-12-26] MEDS: HYDROcodone/Acetamin 5/325 tab ORAL PRN (16:52)
--- NOTE | 2020-12-26 17:11 | NUR ---
CASE MANAGEMENT: REVIEW 12/26/2020 SI:Status post mechanical fall resulting in right hip fracture VS: T 99.1 HR 84 RR 20 B/P 111/64 SATS 96% ON 1L/NC LABS: WBC 2.2 BUN 28 IS:LOVENOX SUBQ QD TELE
--- NOTE | 2020-12-26 18:55 | General Progress Note ---
Subjective ROS Limited/Unobtainable: Yes Allergies: Coded Allergies: No Known Allergies (Unverified , 12/23/20) Objective Last 24 Hour Vital Signs Date Time Temp Pulse Resp B/P (MAP) Pulse Ox O2 Delivery O2 Flow Rate FiO2 12/26/20 16:26 104 12/26/20 16:00 99 12/26/20 15:45 98.2 21 124/61 (82) 97 12/26/20 12:00 98.2 20 111/62 (78) 97 12/26/20 11:45 90 12/26/20 09:00 90 12/26/20 08:30 Nasal Cannula 1.0 12/26/20 08:00 98.0 20 127/62 (83) 96 12/26/20 07:43 95 12/26/20 04:00 84 12/26/20 04:00 99.1 20 111/64 (80) 96 12/26/20 01:25 98.8 12/26/20 00:00 98.8 18 100/56 (71) 94 12/25/20 21:37 98.2 12/25/20 21:00 Nasal Cannula 1.0 Nasal Cannula 1.0 12/25/20 20:00 104 12/25/20 20:00 97.7 18 118/79 (92) 94 Intake and Output 12/25/20 12/26/20 19:00 07:00 Intake Total 350 ml Output Total 350 ml 600 ml Balance 0 ml -600 ml Intake Oral 350 ml Output Urine Total 350 ml 600 ml Laboratory Tests 12/26/20 04:20: White Blood Count 2.2L, Red Blood Count 3.50L, Hemoglobin 11.8L, Hematocrit 36.0L, Mean Corpuscular Volume 103H, Mean Corpuscular Hemoglobin 33.8H, Mean Corpuscular Hemoglobin Concent 32.8, Red Cell Distribution Width 14.4, Platelet Count 95L, Mean Platelet Volume 7.5, Neutrophils (%) (Auto) , Lymphocytes (%) (Auto) , Monocytes (%) (Auto) , Eosinophils (%) (Auto) , Basophils (%) (Auto) , Differential Total Cells Counted 100, Neutrophils % (Manual) 72, Lymphocytes % (Manual) 26, Monocytes % (Manual) 1, Eosinophils % (Manual) 1, Basophils % (Manual) 0, Band Neutrophils 0, Platelet Estimate DecreasedL, Platelet Morphology Normal, Macrocytosis 1+, Sodium Level 143, Potassium Level 4.3, Chloride Level 105, Carbon Dioxide Level 24, Anion Gap 14, Blood Urea Nitrogen 28H, Creatinine 0.9, Estimat Glomerular Filtration Rate > 60, Glucose Level 103, Calcium Level 9.3 Height (Feet): 5 Height (Inches): 4.00 Weight (Pounds): 183 Assessment/Plan Problem List: (1) Hip fracture, right ICD Codes: S72.001A - Fracture of unspecified part of neck of right femur, initial encounter for closed fracture SNOMED: 200989644 Status: progressing Assessment/Plan: s/p orif of hip fracture needs pt/ot reviewed chart s/p svt abnormal ekg wants to go to snf for pt/ot Lynne Godoy MD Dec 26, 2020 18:55
--- NOTE | 2020-12-26 19:55 | NUR ---
NURSE HAND-OFF REPORT: Important Events on Shift:Pt is transferred from SDU at 1615. Patient Status: Diet: Pending Orders: Pending Results/Labs: Pending MD notification: Latest Vital Signs: Temperature 97.8 , Pulse 104 , B/P 132 /65 , Respiratory Rate 20 , O2 SAT 94 , Nasal Cannula, O2 Flow Rate 1.0 . Vital Sign Comment: EKG Rhythm: Sinus Tachycardia Rhythm change?: N MD Notified?: N - MD Response: Latest Rodrigues Fall Score: 60 Fall Risk: High Risk Safety Measures: Call light Within Reach, Bed Alarm Zone 1, Side Rails Side Rails x2, Bed position Low and Locked. Fall Precautions: Yellow Socks Report given to . pt is awake and stable, no stress noted. endorsed plan of care.
--- NOTE | 2020-12-26 19:56 | NUR ---
NURSE NOTES: Report received from ALLY Johnson. Upon assessment pt is observed in bed awake, A/Ox4, eating in bed. C/o pain 3/10 on right hip. Vitals WNL. Afebrile. Saturating 90% on 1L n/c. Right AC #20 patent and intact. Right hip surgery site appears clean, cool to touch, with no drainage or bleeding. Elevated leg. Bed kept in lowest and locked position. Call light within reach. Side rails up x3. Will monitor.
--- NOTE | 2020-12-26 22:13 | NUR ---
NURSE NOTES: Pt c/o pain 5/10 on right hip and requests for pain medication. Reminded and retaught pt about risks of opioid use. Pt states she is aware and requests for tylenol. Administered Tylenol PRN. Will monitor.
--- NOTE | 2020-12-26 22:30 | NUR ---
NURSE NOTES: x1 Normal BM made with [employer] at bedside. Removed QD Lidocane patch on right hip. No cardiopulmonary distress noted. Will monitor.
[2020-12-27] VITALS: BP 108/68
[2020-12-27] MEDS: HYDROcodone/Acetamin 5/325 tab ORAL PRN ×3 (00:12→21:03)
--- NOTE | 2020-12-27 00:30 | NUR ---
NURSE NOTES: Pt attempting to ambulate; c/o headache and requesting norco. Reminded pt that norco can cause headache/dizziness and to utilize call light if need be. Repositioned and will monitor.
[2020-12-27 04:00] VITALS: BP 112/63
--- NOTE | 2020-12-27 06:36 | NUR ---
NURSE NOTES: Dr. Hannah at bedside. No new orders endorsed. Pt in stable condition.
--- NOTE | 2020-12-27 06:40 | Hematology/Onc Progress Note ---
Assessment/Plan Assessment/Plan Assessment and Recs # Breast cancer, that has been resected, 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 Arias at [facility] # Pancytopenia -- likely due to use of lymparza, also has had chemotherapy in the past -> HOLD OFF ON LYMPARZA WHILE HERE --> she will resume when goes to rehab --> HOLD off excessive blood transfusions given has received them in the past --> smear has been noted --> wbc 2-->2.2 --> hgb 11-->11 ==> plt 95 --> neupogen prn # Hip fracture, right --> X-ray right hip: Impression: Probable impacted right femoral neck fracture --> s/p closed reduction and percutaneous pinning of the right hip # Dehydration --> goal of euvolemia # Dvt ppx scds Appreciate consultation and silvana Rn Subjective HEENT: Denies: no symptoms, eye pain, blurred vision, tearing, double vision, ear pain, ear discharge, nose pain, nose congestion, throat pain, throat swelling, mouth pain, mouth swelling, other Cardiovascular: Denies: no symptoms, chest pain, edema, irregular heart rate, lightheadedness, palpitations, syncope, other Respiratory: Denies: no symptoms, cough, shortness of breath, SOB with excertion, SOB at rest, sputum, wheezing, other Gastrointestinal/Abdominal: Denies: no symptoms, abdomen distended, abdominal pain, black stools, tarry stools, blood in stool, constipated, diarrhea, difficulty swallowing, nausea, poor appetite, poor fluid intake, rectal bleeding, vomiting, other Genitourinary: Denies: no symptoms, burning, discharge, frequency, flank pain, hematuria, incontinence, pain, urgency, other Neurologic/Psychiatric: Denies: no symptoms, anxiety, depressed, emotional problems, headache, numbness, paresthesia, pre-existing deficit, seizure, tingling, tremors, weakness, other Endocrine: Denies: no symptoms, excessive sweating, flushing, intolerance to cold, intolerance to heat, increased hunger, increased thirst, increased urine, unexplained weight gain, unexplained weight loss, other Allergies: Coded Allergies: No Known Allergies (Unverified , 12/23/20) Subjective 12/26 surgery went well with Dr. Castle, recovering, this am sleeping comfortably 12/27 lidocaine patch on, dw rn, labs noted, improving Objective Objective Current Medications Medications (Trade) Dose Ordered Sig/Jamie Route PRN Reason Start Time Stop Time Status Last Admin Dose Admin Acetaminophen (Tylenol) 650 mg Q4H PRN ORAL Mild Pain (Pain Scale 1-3) 12/24/20 01:45 01/23/21 01:44 12/26/20 21:12 Acetaminophen/ Hydrocodone Bitart ([place] 5/325) 1 tab Q6H PRN ORAL Moderate Pain (Pain Scale 4-6) 12/25/20 09:00 01/01/21 08:59 12/27/20 00:12 Docusate Sodium (Colace) 100 mg THREE TIMES A DAY ORAL 12/25/20 09:00 01/24/21 08:59 12/26/20 17:48 Enoxaparin Sodium (Lovenox) 40 mg DAILY SUBQ 12/25/20 09:00 01/04/21 08:59 12/26/20 10:10 Lidocaine (Lidoderm 5% PATCH) 1 patch DAILY TDERMAL 12/26/20 09:00 03/26/21 08:59 12/26/20 10:11 Magnesium Hydroxide (Mom) 30 ml DAILYPRN PRN ORAL Constipation 12/24/20 15:45 01/23/21 15:44 Morphine Sulfate (Morphine Sulfate) 2 mg Q4H PRN IVP severe pain 12/25/20 09:00 01/01/21 08:59 Ondansetron HCl (Zofran) 4 mg Q6H PRN IVP Nausea & Vomiting 12/24/20 15:45 01/23/21 15:44 Senna/Docusate Sodium (Graciela-Colace) 1 tab TWICE A DAY ORAL 12/25/20 09:00 01/24/21 08:59 12/26/20 17:48 Temazepam (RestoriL) 7.5 mg DAILYPRN PRN ORAL Insomnia 12/24/20 15:45 12/31/20 15:44 12/26/20 00:54 Last 24 Hour Vital Signs Date Time Temp Pulse Resp B/P (MAP) Pulse Ox O2 Delivery O2 Flow Rate FiO2 12/27/20 04:00 84 12/27/20 04:00 98.8 88 18 112/63 (79) 95 12/27/20 00:27 97.8 12/27/20 00:00 96 12/27/20 00:00 98.8 106 18 108/68 (81) 95 12/26/20 22:19 97.8 12/26/20 21:00 Nasal Cannula 1.0 12/26/20 20:00 97.4 108 17 121/68 (85) 95 12/26/20 20:00 97 12/26/20 16:30 97.8 20 132/65 (87) 94 12/26/20 16:26 104 12/26/20 16:00 99 12/26/20 15:45 98.2 21 124/61 (82) 97 12/26/20 12:00 98.2 20 111/62 (78) 97 12/26/20 11:45 90 12/26/20 09:00 90 12/26/20 08:30 Nasal Cannula 1.0 12/26/20 08:00 98.0 20 127/62 (83) 96 12/26/20 07:43 95 12/26/20 04:00 84 12/26/20 04:00 99.1 20 111/64 (80) 96 12/26/20 01:25 98.8 12/26/20 00:00 98.8 18 100/56 (71) 94 12/25/20 21:37 98.2 12/25/20 21:00 Nasal Cannula 1.0 Nasal Cannula 1.0 12/25/20 20:00 104 12/25/20 20:00 97.7 18 118/79 (92) 94 12/25/20 16:00 97.9 100 20 116/69 (85) 95 12/25/20 16:00 91 12/25/20 12:00 97.7 96 18 115/63 (80) 95 12/25/20 12:00 Nasal Cannula 1.0 Nasal Cannula 1.0 12/25/20 12:00 91 12/25/20 09:00 Nasal Cannula 1.0 Nasal Cannula 1.0 12/25/20 08:00 98.1 89 18 106/57 (73) 93 12/25/20 08:00 105 Intake and Output 12/26/20 12/27/20 19:00 07:00 Intake Total 600 ml Output Total 450 ml Balance 150 ml Intake Oral 600 ml Output Urine Total 450 ml # Voids 2 Labs Test 12/25/20 08:05 12/26/20 04:20 Prothrombin Time 12.9 SEC (9.30-11.50) Prothromb Time International Ratio 1.2 (0.9-1.1) White Blood Count 2.2 K/UL (4.8-10.8) Red Blood Count 3.50 M/UL (4.20-5.40) Hemoglobin 11.8 G/DL (12.0-16.0) Hematocrit 36.0 % (37.0-47.0) Mean Corpuscular Volume 103 FL (80-99) Mean Corpuscular Hemoglobin 33.8 PG (27.0-31.0) Mean Corpuscular Hemoglobin Concent 32.8 G/DL (32.0-36.0) Red Cell Distribution Width 14.4 % (11.6-14.8) Platelet Count 95 K/UL (150-450) Mean Platelet Volume 7.5 FL (6.5-10.1) Neutrophils (%) (Auto) % (45.0-75.0) Lymphocytes (%) (Auto) % (20.0-45.0) Monocytes (%) (Auto) % (1.0-10.0) Eosinophils (%) (Auto) % (0.0-3.0) Basophils (%) (Auto) % (0.0-2.0) Differential Total Cells Counted 100 Neutrophils % (Manual) 72 % (45-75) Lymphocytes % (Manual) 26 % (20-45) Monocytes % (Manual) 1 % (1-10) Eosinophils % (Manual) 1 % (0-3) Basophils % (Manual) 0 % (0-2) Band Neutrophils 0 % (0-8) Platelet Estimate Decreased Platelet Morphology Normal Macrocytosis 1+ Sodium Level 143 MMOL/L (136-145) Potassium Level 4.3 MMOL/L (3.5-5.1) Chloride Level 105 MMOL/L (98-107) Carbon Dioxide Level 24 MMOL/L (21-32) Anion Gap 14 mmol/L (5-15) Blood Urea Nitrogen 28 mg/dL (7-18) Creatinine 0.9 MG/DL (0.55-1.30) Estimat Glomerular Filtration Rate > 60 mL/min (>60) Glucose Level 103 MG/DL (74-106) Calcium Level 9.3 MG/DL (8.5-10.1) Height (Feet): 5 Height (Inches): 4.00 Weight (Pounds): 183 Objective Sp02 EP Interpretation: reviewed, normal General Appearance: no apparent distress, alert, non-toxic Head: normocephalic, atraumatic Eyes: bilateral eye normal inspection, bilateral eye PERRL Neck: full range of motion, supple/symm/no masses Respiratory: chest non-tender, lungs clear, normal breath sounds, speaking full sentences Cardiovascular : regular rate, rhythm, no edema Gastrointestinal: normal bowel sounds, non tender Rectal: deferred Genitourinary: normal inspection, no CVA tenderness Musculoskeletal: back normal, normal range of motion, gait/station normal, other Neurologic: alert, motor strength/tone normal, oriented x3, sensory intact Psychiatric: judgement/insight normal, memory normal Lymphatic: no adenopathy Rivera Hannah MD Dec 27, 2020 06:40
--- NOTE | 2020-12-27 07:01 | NUR ---
NURSE HAND-OFF REPORT: Important Events on Shift: no changes Patient Status: stable Diet: reg Pending Orders: Pending Results/Labs: Pending MD notification: Latest Vital Signs: Temperature 98.8 , Pulse 84 , B/P 112 /63 , Respiratory Rate 18 , O2 SAT 95 , Nasal Cannula, O2 Flow Rate 1.0 . Vital Sign Comment: WNL EKG Rhythm: Sinus Rhythm Rhythm change?: N MD Notified?: N - MD Response: Latest Rodrigues Fall Score: 60 Fall Risk: High Risk Safety Measures: Call light Within Reach, Bed Alarm Zone 1, Side Rails Side Rails x2, Bed position Low and Locked. Fall Precautions: Yellow Socks Report given to ALLY Cash
--- NOTE | 2020-12-27 07:43 | NUR ---
NURSE NOTES: Patient seen in bed in semifowlers position, AAOx4 with no acute signs of distress. Patient is on 1.5L nasal cannula with oxygen saturation within normal limits. The patient has a R AC 20G IV saline locked that is clean, patent and intact. the patients bed is in lowest position, locked, side rails x3, bed alarm in zone 1 and call light within reach. patent instructed to press call light for further needs.
[2020-12-27 08:00] VITALS: BP 122/65
--- NOTE | 2020-12-27 09:16 | General Progress Note ---
Subjective Date patient seen: Dec 27, 2020 Time patient seen: 07:45 - am Allergies: Coded Allergies: No Known Allergies (Unverified , 12/23/20) Subjective Constitutional: Reports: no symptoms HEENT: Reports: no symptoms Cardiovascular: Reports: no symptoms Respiratory: Reports: no symptoms Gastrointestinal/Abdominal: Reports: no symptoms Genitourinary: Reports: no symptoms Neurologic/Psychiatric: Reports: no symptoms Endocrine: Reports: no symptoms Hematologic/Lymphatic: Reports: no symptoms Subjective Patient is in bed and showing no signs of pain or distress. Has used 2 doses of [place]. Having no new complaints at this time. Objective Last 24 Hour Vital Signs Date Time Temp Pulse Resp B/P (MAP) Pulse Ox O2 Delivery O2 Flow Rate FiO2 12/27/20 04:00 84 12/27/20 04:00 98.8 88 18 112/63 (79) 95 12/27/20 00:27 97.8 12/27/20 00:00 96 12/27/20 00:00 98.8 106 18 108/68 (81) 95 12/26/20 22:19 97.8 12/26/20 21:00 Nasal Cannula 1.0 12/26/20 20:00 97.4 108 17 121/68 (85) 95 12/26/20 20:00 97 12/26/20 16:30 97.8 20 132/65 (87) 94 12/26/20 16:26 104 12/26/20 16:00 99 12/26/20 15:45 98.2 21 124/61 (82) 97 12/26/20 12:00 98.2 20 111/62 (78) 97 12/26/20 11:45 90 Intake and Output 12/26/20 12/27/20 19:00 07:00 Intake Total 600 ml Output Total 450 ml Balance 150 ml Intake Oral 600 ml Output Urine Total 450 ml # Voids 2 Height (Feet): 5 Height (Inches): 4.00 Weight (Pounds): 183 Objective General Appearance: no apparent distress, alert EENT: PERRL/EOMI, normal ENT inspection Neck: non-tender, normal alignment Cardiovascular: normal rate, regular rhythm Respiratory/Chest: lungs clear, normal breath sounds Abdomen: non tender, soft Extremities: swelling Edema: trace edema Neurologic: alert, oriented x 3 Assessment/Plan Assessment/Plan: (1) Right hip pain (2) Right hip fx s/p fall and ORIF We will continue the Irvine and Morphine. Rx for [place] 5/325mg 15 tabs and Narcan nasal spray was sent to patients pharmacy of choice. D/w Dr. Boston and he concurred. Roberto Carlos Perry Dec 27, 2020 09:16
[2020-12-27] MEDS: Docusate Sod/Senna tab ORAL SCH ×2 (09:33→17:17)
[2020-12-27] MEDS: Docusate 100mg cap ORAL SCH ×3 (09:33→17:17)
[2020-12-27] MEDS: Enoxaparin 40mg Inj SUBQ SCH (09:35)
--- NOTE | 2020-12-27 10:29 | Cardiac Electrophysiology PN ---
Assessment/Plan Assessment/Plan 1. Status post mechanical fall resulting in right hip fracture. No known coronary artery disease, congestive heart failure, or prior myocardial infarction. Her 12-lead EKG showed sinus tachycardia at a rate of 107 with right bundle- branch block and left anterior fascicular block. Echocardiogram showed Nl EF. Fall could have been precipitated by SVT 2. Bifascicular block with right bundle-branch block and left anterior fasc icular block. 3. SVT at rate 190s. Since didn't feel it likely has frequent episodes. Needs EPS and ablation specially that has bifascicular block and antiarrhythmics may worsen the heart block Agreeable to the procedure. Will do after ARU completed either at [facility] or [facility] Keep off antiarrhythmics for now 4. History of ovarian cancer in 2019, status post surgery and chemotherapy at [facility]. 5. Leukopenia, white count of only 2.2. Further evaluation by Hematology. DW Dr Godoy and RN Subjective Subjective Had SVT of sudden onset and termination at 9 AM lasting more than 10 minutes with HR 190 on 12/25/20 Had successful ORIF of hip on 12/25/20 Sitting in the chair. DC to ARU vs home vs higher level of care for SVT ablation pending Objective Last 24 Hour Vital Signs Date Time Temp Pulse Resp B/P (MAP) Pulse Ox O2 Delivery O2 Flow Rate FiO2 12/27/20 04:00 84 12/27/20 04:00 98.8 88 18 112/63 (79) 95 12/27/20 00:27 97.8 12/27/20 00:00 96 12/27/20 00:00 98.8 106 18 108/68 (81) 95 12/26/20 22:19 97.8 12/26/20 21:00 Nasal Cannula 1.0 12/26/20 20:00 97.4 108 17 121/68 (85) 95 12/26/20 20:00 97 12/26/20 16:30 97.8 20 132/65 (87) 94 12/26/20 16:26 104 12/26/20 16:00 99 12/26/20 15:45 98.2 21 124/61 (82) 97 12/26/20 12:00 98.2 20 111/62 (78) 97 12/26/20 11:45 90 Intake and Output 12/26/20 12/27/20 19:00 07:00 Intake Total 600 ml Output Total 450 ml Balance 150 ml Intake Oral 600 ml Output Urine Total 450 ml # Voids 2 Microbiology Date/Time Source Procedure Growth Status 12/24/20 12:00 Nasopharynx SARS-CoV-2 Antigen (Rapid)(JANES) - Final Complete Objective HEAD AND NECK: Showed no JVD. LUNGS: Clear. CARDIOVASCULAR: Regular S1 and S2 with no gallop or murmur. ABDOMEN: Soft. EXTREMITIES: No pitting edema.S/P OROF hip Xavier Duncan MD Dec 27, 2020 10:29
[2020-12-27 11:30] LABS: HEMATOCRIT 30.3 % (37.0-47.0); HEMOGLOBIN 10.1 G/DL (12.0-16.0); MEAN CORPUSCULAR VOLUME 99 FL (80-99); PLATELET COUNT 107 K/UL (150-450); RED BLOOD COUNT 3.06 M/UL (4.20-5.40); RED CELL DISTRIBUTION WIDTH 14.1 % (11.6-14.8)
[2020-12-27 11:34] LABS: ANION GAP 10 mmol/L (5-15); BLOOD UREA NITROGEN 34 mg/dL (7-18); CALCIUM 9.6 MG/DL (8.5-10.1); CARBON DIOXIDE 24 MMOL/L (21-32); CHLORIDE 103 MMOL/L (98-107); CREATININE 0.6 MG/DL (0.55-1.30); POTASSIUM 3.3 MMOL/L (3.5-5.1); SODIUM 137 MMOL/L (136-145)
[2020-12-27 12:00] VITALS: BP 118/67
--- NOTE | 2020-12-27 13:42 | NUR ---
NURSE NOTES: Contacted dr. Godoy for patients potassium of 3.3, awaiting orders.
[2020-12-27 16:00] VITALS: BP 120/77
--- NOTE | 2020-12-27 17:31 | NUR ---
*-*DISCHARGE PLANING*-* PATIENT HAS BEEN REFERRED TO: [facility] P: [phone] S/W PAULY, PENDING ROOM AVAILABILITY.
--- NOTE | 2020-12-27 18:33 | NUR ---
NURSE HAND-OFF REPORT: Important Events on Shift:[ADLs with PT, awaiting bed for D/C] Patient Status: [Full code] Diet: [Regular] Pending Orders: [N/A] Pending Results/Labs:[N/A] Pending MD notification:[N/A] Latest Vital Signs: Temperature 98.6 , Pulse 96 , B/P 120 /77 , Respiratory Rate 18 , O2 SAT 94 , Nasal Cannula, O2 Flow Rate 1.0 . Vital Sign Comment: [] EKG Rhythm: SR W/ BBB Rhythm change?: N MD Notified?: N - MD Response: Latest Rodrigues Fall Score: 55 Fall Risk: High Risk Safety Measures: Call light Within Reach, Bed Alarm Zone 1, Side Rails Side Rails x2, Bed position Low and Locked. Fall Precautions: Yellow Socks Report given to [ALLY Everett].
--- NOTE | 2020-12-27 19:00 | NUR ---
NURSE NOTES: Report received from ALLY Cash with update. Upon assessment pt is observed out of bed and in chair. States she, "did not make it in time to the bathroom and urinated on herself." Vitals WNL. Afebrile. Saturating 92% on 1L NC Right AC #20 patent and intact. Right hip surgery site appears clean, cool to touch, with no drainage or bleeding. Bed kept in lowest and locked position. Side rails up x3. Walker kept close to patient. Reminded pt to utilize call light if needing request. Will monitor.
--- NOTE | 2020-12-27 19:16 | General Progress Note ---
Subjective ROS Limited/Unobtainable: Yes Allergies: Coded Allergies: No Known Allergies (Unverified , 12/23/20) Objective Last 24 Hour Vital Signs Date Time Temp Pulse Resp B/P (MAP) Pulse Ox O2 Delivery O2 Flow Rate FiO2 12/27/20 16:00 98.6 91 18 120/77 (91) 94 12/27/20 16:00 96 12/27/20 12:00 88 12/27/20 12:00 98.2 88 18 118/67 (84) 94 12/27/20 09:00 Room Air 12/27/20 08:00 98.0 88 18 122/65 (84) 96 12/27/20 08:00 95 12/27/20 04:00 84 12/27/20 04:00 98.8 88 18 112/63 (79) 95 12/27/20 00:27 97.8 12/27/20 00:00 96 12/27/20 00:00 98.8 106 18 108/68 (81) 95 12/26/20 22:19 97.8 12/26/20 21:00 Nasal Cannula 1.0 12/26/20 20:00 97.4 108 17 121/68 (85) 95 12/26/20 20:00 97 l Intake and Output 12/26/20 12/27/20 19:00 07:00 Intake Total 600 ml Output Total 450 ml Balance 150 ml Intake Oral 600 ml Output Urine Total 450 ml # Voids 2 Laboratory Tests 12/27/20 10:55: White Blood Count 2.0*L, Red Blood Count 3.06L, Hemoglobin 10.1L, Hematocrit 30.3L, Mean Corpuscular Volume 99, Mean Corpuscular Hemoglobin 33.1H, Mean Corpuscular Hemoglobin Concent 33.4, Red Cell Distribution Width 14.1, Platelet Count 107L, Mean Platelet Volume 9.3, Neutrophils (%) (Auto) , Lymphocytes (%) (Auto) , Monocytes (%) (Auto) , Eosinophils (%) (Auto) , Basophils (%) (Auto) , Differential Total Cells Counted 100, Neutrophils % (Manual) 79H, Lymphocytes % (Manual) 18L, Monocytes % (Manual) 3, Eosinophils % (Manual) 0, Basophils % (Manual) 0, Band Neutrophils 0, Platelet Estimate DecreasedL, Platelet Morphology Normal, Macrocytosis 1+, Sodium Level 137, Potassium Level 3.3L, Chloride Level 103, Carbon Dioxide Level 24, Anion Gap 10, Blood Urea Nitrogen 34H, Creatinine 0.6, Estimat Glomerular Filtration Rate > 60, Glucose Level 108H , Calcium Level 9.6 Height (Feet): 5 Height (Inches): 4.00 Weight (Pounds): 183 Assessment/Plan Problem List: (1) Hip fracture, right ICD Codes: S72.001A - Fracture of unspecified part of neck of right femur, initial encounter for closed fracture SNOMED: [id number] Status: progressing Assessment/Plan: s/p orif of hip fracture dc planning to snf s/p svt abnormal ekg Lynne Godoy MD Dec 27, 2020 19:16
[2020-12-27 20:00] VITALS: BP 116/78
[2020-12-28] VITALS: BP 97/55
--- NOTE | 2020-12-28 01:46 | NUR ---
NURSE NOTES: Pt observed ambulating to bathroom with walker. Expresses concerns about COVID and requests home health instead of rehab upon discharge. Worries about what her insurance will cover. Will refer to case management. Saturating 93% room air. Reminded pt to keep nasal canula on.
[2020-12-28 04:00] VITALS: BP 110/65
--- NOTE | 2020-12-28 06:26 | NUR ---
NURSE NOTES: No distress noted throughout the night when rounding on patient. 0/10 pain. Denies SOB. saturating 95% 1L NC.
--- NOTE | 2020-12-28 06:44 | NUR ---
NURSE HAND-OFF REPORT: Important Events on Shift: no changes Patient Status: stable Diet: Reg Pending Orders: Pending Results/Labs:Y Pending MD notification: Latest Vital Signs: Temperature 98.7 , Pulse 88 , B/P 110 /65 , Respiratory Rate 17 , O2 SAT 95 , Nasal Cannula, O2 Flow Rate 1.0 . Vital Sign Comment: WNL EKG Rhythm: SR W/ BBB Rhythm change?: N MD Notified?: N - MD Response: Latest Rodrigues Fall Score: 55 Fall Risk: High Risk Safety Measures: Call light Within Reach, Bed Alarm Zone 1, Side Rails Side Rails x2, Bed position Low and Locked. Fall Precautions: Yellow Socks Report given to ALLY Elliott.
[2020-12-28 06:48] LABS: HEMATOCRIT 30.7 % (37.0-47.0); HEMOGLOBIN 10.1 G/DL (12.0-16.0); MEAN CORPUSCULAR VOLUME 103 FL (80-99); PLATELET COUNT 130 K/UL (150-450); RED BLOOD COUNT 2.99 M/UL (4.20-5.40); RED CELL DISTRIBUTION WIDTH 14.6 % (11.6-14.8)
[2020-12-28 06:59] LABS: WHITE BLOOD COUNT 1.6 K/UL (4.8-10.8)
[2020-12-28 07:07] LABS: ANION GAP 9 mmol/L (5-15); BLOOD UREA NITROGEN 29 mg/dL (7-18); CALCIUM 9.4 MG/DL (8.5-10.1); CARBON DIOXIDE 25 MMOL/L (21-32); CHLORIDE 105 MMOL/L (98-107); POTASSIUM 3.8 MMOL/L (3.5-5.1); SODIUM 139 MMOL/L (136-145)
[2020-12-28 07:18] LABS: CREATININE 0.6 MG/DL (0.55-1.30)
[2020-12-28 08:30] VITALS: BP 112/62
--- NOTE | 2020-12-28 08:53 | Hematology/Onc Progress Note ---
Assessment/Plan Assessment/Plan Assessment and Recs # Breast cancer, that has been resected, 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 Arias at [facility] # Pancytopenia -- likely due to use of lymparza, also has had chemotherapy in the past -> HOLD OFF ON LYMPARZA WHILE HERE --> she will resume when goes to rehab --> HOLD off excessive blood transfusions given has received them in the past --> smear has been noted --> wbc 2-->2.2-1.6 --> hgb 11-->11 ==> plt 95 --> neupogen prn --> NEUPOGEN 300mcg sq x 1 12/28/20 # Hip fracture, right --> X-ray right hip: Impression: Probable impacted right femoral neck fracture --> s/p closed reduction and percutaneous pinning of the right hip # Dehydration --> goal of euvolemia # Dvt ppx scds Appreciate consultation and dw Rn Subjective Cardiovascular: Denies: no symptoms, chest pain, edema, irregular heart rate, lightheadedness, palpitations, syncope, other Respiratory: Denies: no symptoms, cough, shortness of breath, SOB with excertion, SOB at rest, sputum, wheezing, other Gastrointestinal/Abdominal: Denies: no symptoms, abdomen distended, abdominal pain, black stools, tarry stools, blood in stool, constipated, diarrhea, difficulty swallowing, nausea, poor appetite, poor fluid intake, rectal bleeding, vomiting, other Genitourinary: Denies: no symptoms, burning, discharge, frequency, flank pain, hematuria, incontinence, pain, urgency, other Neurologic/Psychiatric: Denies: no symptoms, anxiety, depressed, emotional problems, headache, numbness, paresthesia, pre-existing deficit, seizure, tingling, tremors, weakness, other Endocrine: Denies: no symptoms, excessive sweating, flushing, intolerance to cold, intolerance to heat, increased hunger, increased thirst, increased urine, unexplained weight gain, unexplained weight loss, other Hematologic/Lymphatic: Denies: no symptoms, anemia, easy bleeding, easy bruising, adenopathy, other Allergies: Coded Allergies: No Known Allergies (Unverified , 12/23/20) Subjective 12/26 surgery went well with Dr. Castle, recovering, this am sleeping comfortably 12/27 lidocaine patch on, silvana rn, labs noted, improving 12/28 labs show a wbc of 1.6, have ordered for neupogen, silvana Rn in am Objective Objective Current Medications Medications (Trade) Dose Ordered Sig/Jamie Route PRN Reason Start Time Stop Time Status Last Admin Dose Admin Acetaminophen (Tylenol) 650 mg Q4H PRN ORAL Mild Pain (Pain Scale 1-3) 12/24/20 01:45 01/23/21 01:44 12/26/20 21:12 Acetaminophen/ Hydrocodone Bitart ([place] 5/325) 1 tab Q6H PRN ORAL Moderate Pain (Pain Scale 4-6) 12/25/20 09:00 01/01/21 08:59 12/27/20 21:03 Docusate Sodium (Colace) 100 mg THREE TIMES A DAY ORAL 12/25/20 09:00 01/24/21 08:59 12/27/20 17:17 Enoxaparin Sodium (Lovenox) 40 mg DAILY SUBQ 12/25/20 09:00 01/04/21 08:59 12/27/20 09:35 Lidocaine (Lidoderm 5% PATCH) 1 patch DAILY TDERMAL 12/26/20 09:00 03/26/21 08:59 12/27/20 09:33 Magnesium Hydroxide (Mom) 30 ml DAILYPRN PRN ORAL Constipation 12/24/20 15:45 01/23/21 15:44 Morphine Sulfate (Morphine Sulfate) 2 mg Q4H PRN IVP severe pain 12/25/20 09:00 01/01/21 08:59 Ondansetron HCl (Zofran) 4 mg Q6H PRN IVP Nausea & Vomiting 12/24/20 15:45 01/23/21 15:44 Senna/Docusate Sodium (Graciela-Colace) 1 tab TWICE A DAY ORAL 12/25/20 09:00 01/24/21 08:59 12/27/20 17:17 Tbo-Filgrastim (Granix) 300 mcg ONCE ONCE SQ 12/28/20 08:15 12/28/20 08:16 UNV Temazepam (RestoriL) 7.5 mg DAILYPRN PRN ORAL Insomnia 12/24/20 15:45 12/31/20 15:44 12/26/20 00:54 Last 24 Hour Vital Signs Date Time Temp Pulse Resp B/P (MAP) Pulse Ox O2 Delivery O2 Flow Rate FiO2 12/28/20 08:30 97.2 93 112/62 (79) 12/28/20 04:00 88 12/28/20 04:00 98.7 84 17 110/65 (80) 95 12/28/20 00:00 91 12/28/20 00:00 98.7 94 17 97/55 (69) 93 12/27/20 22:17 98.6 12/27/20 21:00 Room Air 12/27/20 20:00 98.7 98 19 116/78 (91) 95 12/27/20 16:00 98.6 91 18 120/77 (91) 94 12/27/20 16:00 96 12/27/20 12:00 88 12/27/20 12:00 98.2 88 18 118/67 (84) 94 12/27/20 09:00 Room Air 12/27/20 08:00 98.0 88 18 122/65 (84) 96 12/27/20 08:00 95 12/27/20 04:00 84 12/27/20 04:00 98.8 88 18 112/63 (79) 95 12/27/20 00:27 97.8 12/27/20 00:00 96 12/27/20 00:00 98.8 106 18 108/68 (81) 95 12/26/20 22:19 97.8 12/26/20 21:00 Nasal Cannula 1.0 12/26/20 20:00 97.4 108 17 121/68 (85) 95 12/26/20 20:00 97 12/26/20 16:30 97.8 20 132/65 (87) 94 12/26/20 16:26 104 12/26/20 16:00 99 12/26/20 15:45 98.2 21 124/61 (82) 97 12/26/20 12:00 98.2 20 111/62 (78) 97 12/26/20 11:45 90 12/26/20 09:00 90 Intake and Output 12/27/20 12/28/20 19:00 07:00 Intake Total 650 ml 200 ml Balance 650 ml 200 ml Intake Oral 650 ml 200 ml # Voids 2 2 Labs Test 12/26/20 04:20 12/27/20 10:55 12/28/20 05:56 White Blood Count 2.2 K/UL (4.8-10.8) 2.0 K/UL (4.8-10.8) 1.6 K/UL (4.8-10.8) Red Blood Count 3.50 M/UL (4.20-5.40) 3.06 M/UL (4.20-5.40) 2.99 M/UL (4.20-5.40) Hemoglobin 11.8 G/DL (12.0-16.0) 10.1 G/DL (12.0-16.0) 10.1 G/DL (12.0-16.0) Hematocrit 36.0 % (37.0-47.0) 30.3 % (37.0-47.0) 30.7 % (37.0-47.0) Mean Corpuscular Volume 103 FL (80-99) 99 FL (80-99) 103 FL (80-99) Mean Corpuscular Hemoglobin 33.8 PG (27.0-31.0) 33.1 PG (27.0-31.0) 33.9 PG (27.0-31.0) Mean Corpuscular Hemoglobin Concent 32.8 G/DL (32.0-36.0) 33.4 G/DL (32.0-36.0) 33.0 G/DL (32.0-36.0) Red Cell Distribution Width 14.4 % (11.6-14.8) 14.1 % (11.6-14.8) 14.6 % (11.6-14.8) Platelet Count 95 K/UL (150-450) 107 K/UL (150-450) 130 K/UL (150-450) Mean Platelet Volume 7.5 FL (6.5-10.1) 9.3 FL (6.5-10.1) 9.2 FL (6.5-10.1) Neutrophils (%) (Auto) % (45.0-75.0) % (45.0-75.0) % (45.0-75.0) Lymphocytes (%) (Auto) % (20.0-45.0) % (20.0-45.0) % (20.0-45.0) Monocytes (%) (Auto) % (1.0-10.0) % (1.0-10.0) % (1.0-10.0) Eosinophils (%) (Auto) % (0.0-3.0) % (0.0-3.0) % (0.0-3.0) Basophils (%) (Auto) % (0.0-2.0) % (0.0-2.0) % (0.0-2.0) Differential Total Cells Counted 100 100 Neutrophils % (Manual) 72 % (45-75) 79 % (45-75) Lymphocytes % (Manual) 26 % (20-45) 18 % (20-45) Monocytes % (Manual) 1 % (1-10) 3 % (1-10) Eosinophils % (Manual) 1 % (0-3) 0 % (0-3) Basophils % (Manual) 0 % (0-2) 0 % (0-2) Band Neutrophils 0 % (0-8) 0 % (0-8) Platelet Estimate Decreased Decreased Platelet Morphology Normal Normal Macrocytosis 1+ 1+ Sodium Level 143 MMOL/L (136-145) 137 MMOL/L (136-145) 139 MMOL/L (136-145) Potassium Level 4.3 MMOL/L (3.5-5.1) 3.3 MMOL/L (3.5-5.1) 3.8 MMOL/L (3.5-5.1) Chloride Level 105 MMOL/L (98-107) 103 MMOL/L (98-107) 105 MMOL/L (98-107) Carbon Dioxide Level 24 MMOL/L (21-32) 24 MMOL/L (21-32) 25 MMOL/L (21-32) Anion Gap 14 mmol/L (5-15) 10 mmol/L (5-15) 9 mmol/L (5-15) Blood Urea Nitrogen 28 mg/dL (7-18) 34 mg/dL (7-18) 29 mg/dL (7-18) Creatinine 0.9 MG/DL (0.55-1.30) 0.6 MG/DL (0.55-1.30) 0.6 MG/DL (0.55-1.30) Estimat Glomerular Filtration Rate > 60 mL/min (>60) > 60 mL/min (>60) > 60 mL/min (>60) Glucose Level 103 MG/DL (74-106) 108 MG/DL (74-106) 94 MG/DL (74-106) Calcium Level 9.3 MG/DL (8.5-10.1) 9.6 MG/DL (8.5-10.1) 9.4 MG/DL (8.5-10.1) Height (Feet): 5 Height (Inches): 4.00 Weight (Pounds): 183 Objective Sp02 EP Interpretation: reviewed, normal General Appearance: no apparent distress, alert, non-toxic Head: normocephalic, atraumatic Eyes: bilateral eye normal inspection, bilateral eye PERRL Neck: full range of motion, supple/symm/no masses Respiratory: chest non-tender, lungs clear, normal breath sounds, speaking full sentences Cardiovascular : regular rate, rhythm, no edema Gastrointestinal: normal bowel sounds, non tender Rectal: deferred Genitourinary: normal inspection, no CVA tenderness Musculoskeletal: back normal, normal range of motion, gait/station normal, other Neurologic: alert, motor strength/tone normal, oriented x3, sensory intact Psychiatric: judgement/insight normal, memory normal Lymphatic: no adenopathy Rivera Hannah MD Dec 28, 2020 08:53
[2020-12-28] MEDS: Docusate 100mg cap ORAL SCH ×3 (09:00→17:53)
[2020-12-28] MEDS: Docusate Sod/Senna tab ORAL SCH ×2 (09:00→17:53)
[2020-12-28] MEDS: Enoxaparin 40mg Inj SUBQ SCH (09:16)
[2020-12-28 11:38] LABS: PHOSPHORUS 3.3 MG/DL (2.5-4.9)
[2020-12-28 11:59] LABS: ALANINE AMINOTRANSFERASE 31 U/L (12-78); ALBUMIN 2.7 G/DL (3.4-5.0); ALKALINE PHOSPHATASE 129 U/L (46-116); ASPARTATE AMINO TRANSFERASE 27 U/L (15-37); BILIRUBIN,DIRECT 0.2 MG/DL (0.0-0.3); BILIRUBIN,TOTAL 0.9 MG/DL (0.2-1.0)
[2020-12-28 12:00] VITALS: BP 105/64
--- NOTE | 2020-12-28 14:16 | Cardiology Report ---
APPROVED REPORT EKG Measurement Heart [id number] <Conclusion> Sinus tachycardia Right bundle branch block Left anterior fascicular block Bifascicular block Left ventricular hypertrophy with repolarization abnormality Abnormal ECG
--- NOTE | 2020-12-28 15:01 | Cardiac Electrophysiology PN ---
Assessment/Plan Assessment/Plan 1. Status post mechanical fall resulting in right hip fracture. No known coronary artery disease, congestive heart failure, or prior myocardial infarction. Her 12-lead EKG showed sinus tachycardia at a rate of 107 with right bundle- branch block and left anterior fascicular block. Echocardiogram showed Nl EF. Fall could have been precipitated by SVT 2. Bifascicular block with right bundle-branch block and left anterior fasc icular block. 3. SVT at rate 190s. Since didn't feel it likely has frequent episodes. Needs EPS and ablation specially that has bifascicular block and antiarrhythmics may worsen the heart block Agreeable to the procedure. Will do as out patient Keep off antiarrhythmics for now 4. History of ovarian cancer in 2019, status post surgery and chemotherapy at [facility]. 5. Leukopenia, white count of only 1.6. Further evaluation by Hematology. 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 No recurrence of SVT Objective Last 24 Hour Vital Signs Date Time Temp Pulse Resp B/P (MAP) Pulse Ox O2 Delivery O2 Flow Rate FiO2 12/28/20 12:00 97.8 95 17 105/64 (78) 92 12/28/20 12:00 109 12/28/20 09:00 Room Air 1.0 Nasal Cannula 12/28/20 08:30 97.2 93 112/62 (79) 12/28/20 08:00 94 12/28/20 04:00 88 12/28/20 04:00 98.7 84 17 110/65 (80) 95 12/28/20 00:00 91 12/28/20 00:00 98.7 94 17 97/55 (69) 93 12/27/20 22:17 98.6 12/27/20 21:00 Room Air 12/27/20 20:00 98.7 98 19 116/78 (91) 95 12/27/20 16:00 98.6 91 18 120/77 (91) 94 12/27/20 16:00 96 Intake and Output 12/27/20 12/28/20 19:00 07:00 Intake Total 650 ml 200 ml Balance 650 ml 200 ml Intake Oral 650 ml 200 ml # Voids 2 2 Laboratory Tests Test 12/28/20 05:36 12/28/20 05:56 Phosphorus Level 3.3 MG/DL (2.5-4.9) Magnesium Level 1.9 MG/DL (1.8-2.4) White Blood Count 1.6 K/UL (4.8-10.8) *L Red Blood Count 2.99 M/UL (4.20-5.40) L Hemoglobin 10.1 G/DL (12.0-16.0) L Hematocrit 30.7 % (37.0-47.0) L Mean Corpuscular Volume 103 FL (80-99) H Mean Corpuscular Hemoglobin 33.9 PG (27.0-31.0) H Mean Corpuscular Hemoglobin Concent 33.0 G/DL (32.0-36.0) Red Cell Distribution Width 14.6 % (11.6-14.8) Platelet Count 130 K/UL (150-450) L Mean Platelet Volume 9.2 FL (6.5-10.1) Neutrophils (%) (Auto) % (45.0-75.0) Lymphocytes (%) (Auto) % (20.0-45.0) Monocytes (%) (Auto) % (1.0-10.0) Eosinophils (%) (Auto) % (0.0-3.0) Basophils (%) (Auto) % (0.0-2.0) Differential Total Cells Counted 100 Neutrophils % (Manual) 65 % (45-75) Lymphocytes % (Manual) 32 % (20-45) Monocytes % (Manual) 1 % (1-10) Eosinophils % (Manual) 2 % (0-3) Basophils % (Manual) 0 % (0-2) Band Neutrophils 0 % (0-8) Platelet Estimate Decreased L Platelet Morphology Normal Anisocytosis 1+ Macrocytosis 1+ Sodium Level 139 MMOL/L (136-145) Potassium Level 3.8 MMOL/L (3.5-5.1) Chloride Level 105 MMOL/L (98-107) Carbon Dioxide Level 25 MMOL/L (21-32) Anion Gap 9 mmol/L (5-15) Blood Urea Nitrogen 29 mg/dL (7-18) H Creatinine 0.6 MG/DL (0.55-1.30) Estimat Glomerular Filtration Rate > 60 mL/min (>60) Glucose Level 94 MG/DL (74-106) Calcium Level 9.4 MG/DL (8.5-10.1) Total Bilirubin 0.9 MG/DL (0.2-1.0) Direct Bilirubin 0.2 MG/DL (0.0-0.3) Aspartate Amino Transf (AST/SGOT) 27 U/L (15-37) Alanine Aminotransferase (ALT/SGPT) 31 U/L (12-78) Alkaline Phosphatase 129 U/L (46-116) H Total Protein 6.5 G/DL (6.4-8.2) Albumin 2.7 G/DL (3.4-5.0) L Objective HEAD AND NECK: Showed no JVD. LUNGS: Clear. CARDIOVASCULAR: Regular S1 and S2 with no gallop or murmur. ABDOMEN: Soft. EXTREMITIES: No pitting edema.S/P OROF hip Xavier Duncan MD Dec 28, 2020 15:01
[2020-12-28 16:00] VITALS: BP 109/62
--- NOTE | 2020-12-28 17:05 | NUR ---
*-*DISCHARGE PLANNING*-* PATIENT HAS BEEN REFERRED TO: [facility] P: [phone]
--- NOTE | 2020-12-28 19:30 | NUR ---
NURSE NOTES: Received report from ALLY Blake. Pt is awake, A/Ox4, no acute distress, no complaints of pain. SpO2 94% on RA, SR with BBB on case monitor. RR even, unlabored. R AC 20g intact and asymptomatic. SCDs off when assisting pt to bathroom. HOB is elevated, side rails x2, call light within reach, bed locked and in lowest position. Will continue plan of care. Will continue to monitor.
[2020-12-28 20:00] VITALS: BP 111/66
--- NOTE | 2020-12-28 20:10 | General Progress Note ---
Subjective ROS Limited/Unobtainable: Yes Allergies: Coded Allergies: No Known Allergies (Unverified , 12/23/20) Objective Last 24 Hour Vital Signs Date Time Temp Pulse Resp B/P (MAP) Pulse Ox O2 Delivery O2 Flow Rate FiO2 12/28/20 16:00 98.0 85 16 109/62 (78) 93 12/28/20 16:00 91 12/28/20 12:00 97.8 95 17 105/64 (78) 92 12/28/20 12:00 109 12/28/20 09:00 Room Air 1.0 Nasal Cannula 12/28/20 08:30 97.2 93 112/62 (79) 12/28/20 08:00 94 12/28/20 04:00 88 12/28/20 04:00 98.7 84 17 110/65 (80) 95 12/28/20 00:00 91 12/28/20 00:00 98.7 94 17 97/55 (69) 93 12/27/20 22:17 98.6 12/27/20 21:00 Room Air Intake and Output 12/27/20 12/28/20 19:00 07:00 Intake Total 650 ml 200 ml Balance 650 ml 200 ml Intake Oral 650 ml 200 ml # Voids 2 2 Laboratory Tests 12/28/20 05:36: Phosphorus Level 3.3, Magnesium Level 1.9 12/28/20 05:56: White Blood Count 1.6*L, Red Blood Count 2.99L, Hemoglobin 10.1L, Hematocrit 30.7L, Mean Corpuscular Volume 103H, Mean Corpuscular Hemoglobin 33.9H, Mean Corpuscular Hemoglobin Concent 33.0, Red Cell Distribution Width 14.6, Platelet Count 130L, Mean Platelet Volume 9.2, Neutrophils (%) (Auto) , Lymphocytes (%) (Auto) , Monocytes (%) (Auto) , Eosinophils (%) (Auto) , Basophils (%) (Auto) , Differential Total Cells Counted 100, Neutrophils % (Manual) 65, Lymphocytes % (Manual) 32, Monocytes % (Manual) 1, Eosinophils % (Manual) 2, Basophils % (Manual) 0, Band Neutrophils 0, Platelet Estimate DecreasedL, Platelet Morphology Normal, Anisocytosis 1+, Macrocytosis 1+, Sodium Level 139, Potassium Level 3.8, Chloride Level 105, Carbon Dioxide Level 25, Anion Gap 9, Blood Urea Nitrogen 29H, Creatinine 0.6, Estimat Glomerular Filtration Rate > 60, Glucose Level 94, Calcium Level 9.4, Total Bilirubin 0.9, Direct Bilirubin 0.2, Aspartate Amino Transf (AST/SGOT) 27, Alanine Aminotransferase (ALT/SGPT) 31, Alkaline Phosphatase 129H, Total Protein 6.5, Albumin 2.7L Height (Feet): 5 Height (Inches): 4.00 Weight (Pounds): 183 Assessment/Plan Problem List: (1) Hip fracture, right ICD Codes: S72.001A - Fracture of unspecified part of neck of right femur, initial encounter for closed fracture SNOMED: 515033247 Status: progressing Assessment/Plan: s/p orif of hip fracture dc planning to snf arrythmia pt recommends short term rehab Lynne Godoy MD Dec 28, 2020 20:10
--- NOTE | 2020-12-28 20:59 | NUR ---
NURSE NOTES: Pt refused Granix 300mcg SQ, stating that she spoke with her oncologist and he will speak with the MDs about her not requiring that med.
[2020-12-28] MEDS ORDERED: TBO-Filgrastim 300 mcg/0.5ml SQ SCH (21:00)
--- NOTE | 2020-12-28 23:12 | NUR ---
NURSE NOTES: Pt is asleep, no signs of acute distress noted. Respirations are even and unlabored. Will continue to monitor.
[2020-12-29] VITALS: BP 115/66
[2020-12-29 04:00] VITALS: BP 113/62
--- NOTE | 2020-12-29 07:04 | NUR ---
NURSE HAND-OFF REPORT: Important Events on Shift:[No acute events] Patient Status: [Stable] Diet: [Regular] Pending Orders: [NA] Pending Results/Labs:[NA] Pending MD notification:[NA] Latest Vital Signs: Temperature 97.4 , Pulse 78 , B/P 113 /62 , Respiratory Rate 18 , O2 SAT 98 , Nasal Cannula, O2 Flow Rate 1.0 . Vital Sign Comment: [Stable] EKG Rhythm: SR w/ BBB Rhythm change?: N MD Notified?: N - MD Response: Latest Rodrigues Fall Score: 55 Fall Risk: High Risk Safety Measures: Call light Within Reach, Bed Alarm Zone 1, Side Rails Side Rails x2, Bed position Low and Locked. Fall Precautions: Yellow Socks Report given to [ALLY Blake].
[2020-12-29 08:00] VITALS: BP 106/53
[2020-12-29] MEDS: Docusate Sod/Senna tab ORAL SCH ×2 (08:45→18:00)
[2020-12-29] MEDS: Docusate 100mg cap ORAL SCH ×3 (08:45→18:00)
[2020-12-29] MEDS: Enoxaparin 40mg Inj SUBQ SCH (08:46)
--- NOTE | 2020-12-29 10:07 | NUR ---
CASE MANAGEMENT:REVIEW 12/29/20 SI: POD #6 S/P CLOSED REDUCTION AND PERCUTANEOUS PINNING OF RT FEMORAL NECK FX 97.4 87 18 113/62 98% ON RA WBC-1.6 H/H-10.1/30.7 PLT-130 IS: LIDOCAINE PATCH NORCO PO Q6HRS PRN IV MORPHINE Q4HRS PRN LOVENOX SQ QD COLACE PO TID : TELEMETRY STATUS DCP: FROM HOME PLAN: CONTINUE DAILY PT ~ AMBULATING 50FT
[2020-12-29 12:00] VITALS: BP 110/57
--- NOTE | 2020-12-29 15:39 | Cardiac Electrophysiology PN ---
Assessment/Plan Assessment/Plan 1. Status post mechanical fall resulting in right hip fracture. No known coronary artery disease, congestive heart failure, or prior myocardial infarction. Her 12-lead EKG showed sinus tachycardia at a rate of 107 with right bundle- branch block and left anterior fascicular block. Echocardiogram showed Nl EF. Fall could have been precipitated by SVT 2. Bifascicular block with right bundle-branch block and left anterior fasc icular block. Keep Off AVN blockers for risk of progression to CHB 3. Recurrent SVT at rate 170-190s. Since didn't feel it likely has frequent episodes. Needs EPS and ablation specially that has bifascicular block and antiarrhythmics may worsen the heart block Agreeable to the procedure. Will do as out patient 4. History of ovarian cancer in 2019, status post surgery and chemotherapy at [facility]. 5. Leukopenia, white count of only 1.6. Further evaluation by Hematology. 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 Godoy and RN Subjective Subjective Had SVT of sudden onset and termination at 9 AM lasting more than 10 minutes with HR 190 on 12/25/20 Had successful ORIF of hip on 12/25/20 Had another episode of SVT at rate 170s at 8 am today 12/29/20 Objective Last 24 Hour Vital Signs Date Time Temp Pulse Resp B/P (MAP) Pulse Ox O2 Delivery O2 Flow Rate FiO2 12/29/20 12:00 88 12/29/20 12:00 98.1 84 18 110/57 (74) 96 12/29/20 09:00 Room Air 12/29/20 08:00 78 12/29/20 08:00 99.3 89 18 106/53 (70) 95 12/29/20 04:00 97.4 87 18 113/62 (79) 98 12/29/20 04:00 78 12/29/20 00:00 98.0 81 18 115/66 (82) 95 12/29/20 00:00 83 12/28/20 21:00 Room Air 12/28/20 20:00 98.3 93 18 111/66 (81) 94 12/28/20 20:00 91 12/28/20 16:00 98.0 85 16 109/62 (78) 93 12/28/20 16:00 91 Intake and Output 12/28/20 12/29/20 19:00 07:00 Intake Total 300 ml 100 ml Balance 300 ml 100 ml Intake Oral 300 ml 100 ml # Voids 3 2 Objective HEAD AND NECK: Showed no JVD. LUNGS: Clear. CARDIOVASCULAR: Regular S1 and S2 with no gallop or murmur. ABDOMEN: Soft. EXTREMITIES: No pitting edema.S/P OROF hip Xavier Duncan MD Dec 29, 2020 15:39
[2020-12-29 16:00] VITALS: BP 107/50
[2020-12-29 20:00] VITALS: BP 119/68
--- NOTE | 2020-12-29 20:00 | NUR ---
NURSE NOTES: received patient alert oriented sitting up in bed with no signs of distress. no pain at this time. hygiene kit, gowns, towels and wipes given to patient. discussed plan of care. call anderson within reach, will continue to monitor.
--- NOTE | 2020-12-29 21:37 | General Progress Note ---
Subjective ROS Limited/Unobtainable: Yes Allergies: Coded Allergies: No Known Allergies (Unverified , 12/23/20) Objective Last 24 Hour Vital Signs Date Time Temp Pulse Resp B/P (MAP) Pulse Ox O2 Delivery O2 Flow Rate FiO2 12/29/20 20:00 98.4 84 18 119/68 (85) 94 12/29/20 20:00 88 12/29/20 16:00 98.8 86 18 107/50 (69) 93 12/29/20 16:00 87 12/29/20 12:00 88 12/29/20 12:00 98.1 84 18 110/57 (74) 96 12/29/20 09:00 Room Air 12/29/20 08:00 78 12/29/20 08:00 99.3 89 18 106/53 (70) 95 12/29/20 04:00 97.4 87 18 113/62 (79) 98 12/29/20 04:00 78 12/29/20 00:00 98.0 81 18 115/66 (82) 95 12/29/20 00:00 83 Intake and Output 12/28/20 12/29/20 19:00 07:00 Intake Total 300 ml 100 ml Balance 300 ml 100 ml Intake Oral 300 ml 100 ml # Voids 3 2 Height (Feet): 5 Height (Inches): 4.00 Weight (Pounds): 183 Assessment/Plan Problem List: (1) Hip fracture, right ICD Codes: S72.001A - Fracture of unspecified part of neck of right femur, initial encounter for closed fracture SNOMED: 811978976 Status: progressing Assessment/Plan: s/p orif of hip fracture dc planning to snf arrythmia awaiting placement s/p fall no tachy today Lynne Godoy MD Dec 29, 2020 21:37
[2020-12-30] VITALS: BP 112/61
--- NOTE | 2020-12-30 | NUR ---
NURSE NOTES: no changes from previous assessment. call anderson within reach. will continue to monitor.
[2020-12-30 04:00] VITALS: BP 121/70
--- NOTE | 2020-12-30 07:10 | NUR ---
NURSE HAND-OFF REPORT: Important Events on Shift:[] Patient Status: [] Diet: [] Pending Orders: [] Pending Results/Labs:[] Pending MD notification:[] Latest Vital Signs: Temperature 97.9 , Pulse 71 , B/P 121 /70 , Respiratory Rate 16 , O2 SAT 96 , Nasal Cannula, O2 Flow Rate 1.0 . Vital Sign Comment: [] EKG Rhythm: SR w/ BBB Rhythm change?: N MD Notified?: N - MD Response: Latest Rodrigues Fall Score: 55 Fall Risk: High Risk Safety Measures: Call light Within Reach, Bed Alarm Zone 1, Side Rails Side Rails x2, Bed position Low and Locked. Fall Precautions: Yellow Socks Report given to [].
--- NOTE | 2020-12-30 07:38 | General Progress Note ---
Subjective Date patient seen: Dec 30, 2020 Time patient seen: 06:15 - am Allergies: Coded Allergies: No Known Allergies (Unverified , 12/23/20) Subjective Constitutional: Reports: no symptoms HEENT: Reports: no symptoms Cardiovascular: Reports: no symptoms Respiratory: Reports: no symptoms Gastrointestinal/Abdominal: Reports: no symptoms Genitourinary: Reports: no symptoms Neurologic/Psychiatric: Reports: no symptoms Endocrine: Reports: no symptoms Hematologic/Lymphatic: Reports: no symptoms Subjective Patient sitting up in bed and denies pain at this time. Objective Last 24 Hour Vital Signs Date Time Temp Pulse Resp B/P (MAP) Pulse Ox O2 Delivery O2 Flow Rate FiO2 12/30/20 04:00 97.9 87 16 121/70 (87) 96 12/30/20 04:00 71 12/30/20 00:00 84 12/30/20 00:00 98.1 91 17 112/61 (78) 96 12/29/20 21:00 Room Air 12/29/20 20:00 98.4 84 18 119/68 (85) 94 12/29/20 20:00 88 12/29/20 16:00 98.8 86 18 107/50 (69) 93 12/29/20 16:00 87 12/29/20 12:00 88 12/29/20 12:00 98.1 84 18 110/57 (74) 96 12/29/20 09:00 Room Air 12/29/20 08:00 78 12/29/20 08:00 99.3 89 18 106/53 (70) 95 Intake and Output 12/29/20 12/30/20 19:00 07:00 Intake Total 600 ml 120 ml Balance 600 ml 120 ml Intake Oral 600 ml 120 ml # Voids 4 3 Height (Feet): 5 Height (Inches): 4.00 Weight (Pounds): 183 Objective General Appearance: no apparent distress, alert EENT: PERRL/EOMI, normal ENT inspection Neck: non-tender, normal alignment Cardiovascular: normal rate, regular rhythm Respiratory/Chest: lungs clear, normal breath sounds Abdomen: non tender, soft Extremities: swelling Edema: trace edema Neurologic: alert, oriented x 3 Assessment/Plan Assessment/Plan: (1) Right hip pain (2) Right hip fx s/p fall and ORIF Patient will be continued on the Donie and Morphine. D/w Dr. [place] and he concurred. Roberto Carlos Perry Dec 30, 2020 07:38
[2020-12-30 08:00] VITALS: BP 112/64
[2020-12-30] MEDS: Enoxaparin 40mg Inj SUBQ SCH (08:37)
[2020-12-30] MEDS: Docusate 100mg cap ORAL SCH ×3 (08:38→17:16)
[2020-12-30] MEDS: Docusate Sod/Senna tab ORAL SCH ×2 (08:38→17:16)
[2020-12-30] MEDS ORDERED: Tubing IV Secondary IV ONE (09:51)
--- NOTE | 2020-12-30 11:37 | Hematology/Onc Progress Note ---
Assessment/Plan Assessment/Plan Assessment and Recs # Breast cancer, that has been resected, 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 Arias at [facility] # Pancytopenia -- likely due to use of lymparza, also has had chemotherapy in the past -> HOLD OFF ON LYMPARZA WHILE HERE --> she will resume when goes to rehab --> HOLD off excessive blood transfusions given has received them in the past --> smear has been noted --> wbc 2-->2.2-1.6 --> hgb 11-->11 ==> plt 95-->130 --> neupogen prn --> NEUPOGEN 300mcg sq x 1 12/28/20 # Hip fracture, right --> X-ray right hip: Impression: Probable impacted right femoral neck fracture --> s/p closed reduction and percutaneous pinning of the right hip # Dehydration --> goal of euvolemia # Dvt ppx scds Appreciate consultation and dw Rn Subjective Constitutional: Denies: no symptoms, chills, fever, malaise, weakness, other HEENT: Denies: no symptoms, eye pain, blurred vision, tearing, double vision, ear pain, ear discharge, nose pain, nose congestion, throat pain, throat swelling, mouth pain, mouth swelling, other Cardiovascular: Denies: no symptoms, chest pain, edema, irregular heart rate, lightheadedness, palpitations, syncope, other Gastrointestinal/Abdominal: Denies: no symptoms, abdomen distended, abdominal pain, black stools, tarry stools, blood in stool, constipated, diarrhea, difficulty swallowing, nausea, poor appetite, poor fluid intake, rectal bleeding, vomiting, other Genitourinary: Denies: no symptoms, burning, discharge, frequency, flank pain, hematuria, incontinence, pain, urgency, other Neurologic/Psychiatric: Denies: no symptoms, anxiety, depressed, emotional problems, headache, numbness, paresthesia, pre-existing deficit, seizure, tingling, tremors, weakness, other Endocrine: Denies: no symptoms, excessive sweating, flushing, intolerance to cold, intolerance to heat, increased hunger, increased thirst, increased urine, unexplained weight gain, unexplained weight loss, other Hematologic/Lymphatic: Denies: no symptoms, anemia, easy bleeding, easy bruising, adenopathy, other Allergies: Coded Allergies: No Known Allergies (Unverified , 12/23/20) Subjective 12/26 surgery went well with Dr. Castle, recovering, this am sleeping comfortably 12/27 lidocaine patch on, silvana rn, labs noted, improving 12/28 labs show a wbc of 1.6, have ordered for neupogen, silvana Rn in am 12/30 labs noted, wbc is pending, cbc ordered, seen by pain management Objective Objective Current Medications Medications (Trade) Dose Ordered Sig/Jamie Route PRN Reason Start Time Stop Time Status Last Admin Dose Admin Acetaminophen (Tylenol) 650 mg Q4H PRN ORAL Mild Pain (Pain Scale 1-3) 12/24/20 01:45 01/23/21 01:44 12/29/20 23:31 Acetaminophen/ Hydrocodone Bitart ([place] 5/325) 1 tab Q6H PRN ORAL Moderate Pain (Pain Scale 4-6) 12/25/20 09:00 01/01/21 08:59 12/27/20 21:03 Docusate Sodium (Colace) 100 mg THREE TIMES A DAY ORAL 12/25/20 09:00 01/24/21 08:59 12/27/20 17:17 Enoxaparin Sodium (Lovenox) 40 mg DAILY SUBQ 12/25/20 09:00 01/04/21 08:59 12/30/20 08:37 Lidocaine (Lidoderm 5% PATCH) 1 patch DAILY TDERMAL 12/26/20 09:00 03/26/21 08:59 12/30/20 08:35 Magnesium Hydroxide (Mom) 30 ml DAILYPRN PRN ORAL Constipation 12/24/20 15:45 01/23/21 15:44 Morphine Sulfate (Morphine Sulfate) 2 mg Q4H PRN IVP severe pain 12/25/20 09:00 01/01/21 08:59 Ondansetron HCl (Zofran) 4 mg Q6H PRN IVP Nausea & Vomiting 12/24/20 15:45 01/23/21 15:44 Senna/Docusate Sodium (Graciela-Colace) 1 tab TWICE A DAY ORAL 12/25/20 09:00 01/24/21 08:59 12/27/20 17:17 Temazepam (RestoriL) 7.5 mg DAILYPRN PRN ORAL Insomnia 12/24/20 15:45 12/31/20 15:44 12/26/20 00:54 Last 24 Hour Vital Signs Date Time Temp Pulse Resp B/P (MAP) Pulse Ox O2 Delivery O2 Flow Rate FiO2 12/30/20 09:00 Room Air Room Air 12/30/20 08:00 97.7 80 16 112/64 (80) 96 12/30/20 08:00 80 12/30/20 04:00 97.9 87 16 121/70 (87) 96 12/30/20 04:00 71 12/30/20 00:00 84 12/30/20 00:00 98.1 91 17 112/61 (78) 96 12/29/20 21:00 Room Air 12/29/20 20:00 98.4 84 18 119/68 (85) 94 12/29/20 20:00 88 12/29/20 16:00 98.8 86 18 107/50 (69) 93 12/29/20 16:00 87 12/29/20 12:00 88 12/29/20 12:00 98.1 84 18 110/57 (74) 96 12/29/20 09:00 Room Air 12/29/20 08:00 78 12/29/20 08:00 99.3 89 18 106/53 (70) 95 12/29/20 04:00 97.4 87 18 113/62 (79) 98 12/29/20 04:00 78 12/29/20 00:00 98.0 81 18 115/66 (82) 95 12/29/20 00:00 83 12/28/20 21:00 Room Air 12/28/20 20:00 98.3 93 18 111/66 (81) 94 12/28/20 20:00 91 12/28/20 16:00 98.0 85 16 109/62 (78) 93 12/28/20 16:00 91 12/28/20 12:00 97.8 95 17 105/64 (78) 92 12/28/20 12:00 109 Intake and Output 12/29/20 12/30/20 19:00 07:00 Intake Total 600 ml 120 ml Balance 600 ml 120 ml Intake Oral 600 ml 120 ml # Voids 4 3 Labs Test 12/28/20 05:36 12/28/20 05:56 Phosphorus Level 3.3 MG/DL (2.5-4.9) Magnesium Level 1.9 MG/DL (1.8-2.4) White Blood Count 1.6 K/UL (4.8-10.8) Red Blood Count 2.99 M/UL (4.20-5.40) Hemoglobin 10.1 G/DL (12.0-16.0) Hematocrit 30.7 % (37.0-47.0) Mean Corpuscular Volume 103 FL (80-99) Mean Corpuscular Hemoglobin 33.9 PG (27.0-31.0) Mean Corpuscular Hemoglobin Concent 33.0 G/DL (32.0-36.0) Red Cell Distribution Width 14.6 % (11.6-14.8) Platelet Count 130 K/UL (150-450) Mean Platelet Volume 9.2 FL (6.5-10.1) Neutrophils (%) (Auto) % (45.0-75.0) Lymphocytes (%) (Auto) % (20.0-45.0) Monocytes (%) (Auto) % (1.0-10.0) Eosinophils (%) (Auto) % (0.0-3.0) Basophils (%) (Auto) % (0.0-2.0) Differential Total Cells Counted 100 Neutrophils % (Manual) 65 % (45-75) Lymphocytes % (Manual) 32 % (20-45) Monocytes % (Manual) 1 % (1-10) Eosinophils % (Manual) 2 % (0-3) Basophils % (Manual) 0 % (0-2) Band Neutrophils 0 % (0-8) Platelet Estimate Decreased Platelet Morphology Normal Anisocytosis 1+ Macrocytosis 1+ Sodium Level 139 MMOL/L (136-145) Potassium Level 3.8 MMOL/L (3.5-5.1) Chloride Level 105 MMOL/L (98-107) Carbon Dioxide Level 25 MMOL/L (21-32) Anion Gap 9 mmol/L (5-15) Blood Urea Nitrogen 29 mg/dL (7-18) Creatinine 0.6 MG/DL (0.55-1.30) Estimat Glomerular Filtration Rate > 60 mL/min (>60) Glucose Level 94 MG/DL (74-106) Calcium Level 9.4 MG/DL (8.5-10.1) Total Bilirubin 0.9 MG/DL (0.2-1.0) Direct Bilirubin 0.2 MG/DL (0.0-0.3) Aspartate Amino Transf (AST/SGOT) 27 U/L (15-37) Alanine Aminotransferase (ALT/SGPT) 31 U/L (12-78) Alkaline Phosphatase 129 U/L (46-116) Total Protein 6.5 G/DL (6.4-8.2) Albumin 2.7 G/DL (3.4-5.0) Height (Feet): 5 Height (Inches): 4.00 Weight (Pounds): 183 Objective Sp02 EP Interpretation: reviewed, normal General Appearance: no apparent distress, alert, non-toxic Head: normocephalic, atraumatic Eyes: bilateral eye normal inspection, bilateral eye PERRL Neck: full range of motion, supple/symm/no masses Respiratory: chest non-tender, lungs clear, normal breath sounds, speaking full sentences Cardiovascular : regular rate, rhythm, no edema Gastrointestinal: normal bowel sounds, non tender Rectal: deferred Genitourinary: normal inspection, no CVA tenderness Musculoskeletal: back normal, normal range of motion, gait/station normal, other Neurologic: alert, motor strength/tone normal, oriented x3, sensory intact Psychiatric: judgement/insight normal, memory normal Lymphatic: no adenopathy Rivera Hannah MD Dec 30, 2020 11:37
[2020-12-30 12:00] VITALS: BP 104/81
--- NOTE | 2020-12-30 14:14 | Cardiac Electrophysiology PN ---
Assessment/Plan Assessment/Plan 1. Status post mechanical fall resulting in right hip fracture. No known coronary artery disease, congestive heart failure, or prior myocardial infarction. Her 12-lead EKG showed sinus tachycardia at a rate of 107 with right bundle- branch block and left anterior fascicular block. Echocardiogram showed Nl EF. Fall could have been precipitated by SVT 2. Bifascicular block with right bundle-branch block and left anterior fasc icular block. Keep Off AVN blockers for risk of progression to CHB 3. Recurrent SVT at rate 170-190s. Since didn't feel it likely has frequent episodes. Needs EPS and ablation specially that has bifascicular block and antiarrhythmics may worsen the heart block Agreeable to the procedure. Will do as out patient 4. History of ovarian cancer in 2019, status post surgery and chemotherapy at [facility]. 5. Leukopenia, white count of only 1.6. Further evaluation by Hematology. 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 Godoy and RN Subjective Subjective Had SVT of sudden onset and termination at 9 AM lasting more than 10 minutes with HR 190 on 12/25/20 Had successful ORIF of hip on 12/25/20 Had another episode of SVT at rate 170s at 8 am on 12/29/20 No SVt today. DC planning to home with Objective Last 24 Hour Vital Signs Date Time Temp Pulse Resp B/P (MAP) Pulse Ox O2 Delivery O2 Flow Rate FiO2 12/30/20 12:00 98.3 85 16 104/81 (89) 98 12/30/20 12:00 80 12/30/20 09:00 Room Air Room Air 12/30/20 08:00 97.7 80 16 112/64 (80) 96 12/30/20 08:00 80 12/30/20 04:00 97.9 87 16 121/70 (87) 96 12/30/20 04:00 71 12/30/20 00:00 84 12/30/20 00:00 98.1 91 17 112/61 (78) 96 12/29/20 21:00 Room Air 12/29/20 20:00 98.4 84 18 119/68 (85) 94 12/29/20 20:00 88 12/29/20 16:00 98.8 86 18 107/50 (69) 93 12/29/20 16:00 87 Intake and Output 12/29/20 12/30/20 19:00 07:00 Intake Total 600 ml 120 ml Balance 600 ml 120 ml Intake Oral 600 ml 120 ml # Voids 4 3 Objective HEAD AND NECK: Showed no JVD. LUNGS: Clear. CARDIOVASCULAR: Regular S1 and S2 with no gallop or murmur. ABDOMEN: Soft. EXTREMITIES: No pitting edema.S/P OROF hip Xavier Duncan MD Dec 30, 2020 14:14
[2020-12-30 16:00] VITALS: BP 113/64
[2020-12-30 20:00] VITALS: BP 119/69
--- NOTE | 2020-12-30 20:52 | General Progress Note ---
Subjective ROS Limited/Unobtainable: Yes Allergies: Coded Allergies: No Known Allergies (Unverified , 12/23/20) Objective Last 24 Hour Vital Signs Date Time Temp Pulse Resp B/P (MAP) Pulse Ox O2 Delivery O2 Flow Rate FiO2 12/30/20 16:00 83 12/30/20 16:00 98.4 90 18 113/64 (80) 98 12/30/20 12:00 98.3 85 16 104/81 (89) 98 12/30/20 12:00 80 12/30/20 09:00 Room Air Room Air 12/30/20 08:00 97.7 80 16 112/64 (80) 96 12/30/20 08:00 80 12/30/20 04:00 97.9 87 16 121/70 (87) 96 12/30/20 04:00 71 12/30/20 00:00 84 12/30/20 00:00 98.1 91 17 112/61 (78) 96 12/29/20 21:00 Room Air Intake and Output 12/29/20 12/30/20 19:00 07:00 Intake Total 600 ml 120 ml Balance 600 ml 120 ml Intake Oral 600 ml 120 ml # Voids 4 3 Height (Feet): 5 Height (Inches): 4.00 Weight (Pounds): 183 Assessment/Plan Problem List: (1) Hip fracture, right ICD Codes: S72.001A - Fracture of unspecified part of neck of right femur, initial encounter for closed fracture SNOMED: [id number] Assessment/Plan: s/p orif of hip fracture pt told me now she prefers and wants to go home w and she believes she can and is able to take care of herself and do the daily adls arrythmia s/p fall Lynne Godoy MD Dec 30, 2020 20:52
[2020-12-30] MEDS: HYDROcodone/Acetamin 5/325 tab ORAL PRN (23:28)
[2020-12-31] VITALS: BP 112/63
[2020-12-31 04:00] VITALS: BP 109/67
--- NOTE | 2020-12-31 06:22 | Hematology/Onc Progress Note ---
Assessment/Plan Assessment/Plan Assessment and Recs # Breast cancer, that has been resected, 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 Arias at [facility] # Pancytopenia -- likely due to use of lymparza, also has had chemotherapy in the past -> HOLD OFF ON LYMPARZA WHILE HERE --> she will resume when goes to rehab --> HOLD off excessive blood transfusions given has received them in the past --> smear has been noted --> wbc 2-->2.2-1.6 --> hgb 11-->11 ==> plt 95-->130 --> neupogen prn --> NEUPOGEN 300mcg sq x 1 12/28/20 # Hip fracture, right --> X-ray right hip: Impression: Probable impacted right femoral neck fracture --> s/p closed reduction and percutaneous pinning of the right hip # Dehydration --> goal of euvolemia # Dvt ppx scds Appreciate consultation and silvana Rn Subjective HEENT: Denies: no symptoms, eye pain, blurred vision, tearing, double vision, ear pain, ear discharge, nose pain, nose congestion, throat pain, throat s welling, mouth pain, mouth swelling, other Cardiovascular: Denies: no symptoms, chest pain, edema, irregular heart rate, lightheadedness, palpitations, syncope, other Respiratory: Denies: no symptoms, cough, shortness of breath, SOB with excertion, SOB at rest, sputum, wheezing, other Gastrointestinal/Abdominal: Denies: no symptoms, abdomen distended, abdominal pain, black stools, tarry stools, blood in stool, constipated, diarrhea, difficulty swallowing, nausea, poor appetite, poor fluid intake, rectal bleeding, vomiting, other Genitourinary: Denies: no symptoms, burning, discharge, frequency, flank pain, hematuria, incontinence, pain, urgency, other Neurologic/Psychiatric: Denies: no symptoms, anxiety, depressed, emotional problems, headache, numbness, paresthesia, pre-existing deficit, seizure, tingling, tremors, weakness, other Endocrine: Denies: no symptoms, excessive sweating, flushing, intolerance to cold, intolerance to heat, increased hunger, increased thirst, increased urine, unexplained weight gain, unexplained weight loss, other Hematologic/Lymphatic: Denies: no symptoms, anemia, easy bleeding, easy bruising, adenopathy, other Allergies: Coded Allergies: No Known Allergies (Unverified , 12/23/20) Subjective 12/26 surgery went well with Dr. Castle, recovering, this am sleeping comfortably 12/27 lidocaine patch on, silvana rn, labs noted, improving 12/28 labs show a wbc of 1.6, have ordered for neupogen, silvana Rn in am 12/30 labs noted, wbc is pending, cbc ordered, seen by pain management 12/31 meds reviewed, labs ordered, no new changes, pain better Objective Objective Current Medications Medications (Trade) Dose Ordered Sig/Jamie Route PRN Reason Start Time Stop Time Status Last Admin Dose Admin Acetaminophen (Tylenol) 650 mg Q4H PRN ORAL Mild Pain (Pain Scale 1-3) 12/24/20 01:45 01/23/21 01:44 12/30/20 16:44 Acetaminophen/ Hydrocodone Bitart ([place] 5/325) 1 tab Q6H PRN ORAL Moderate Pain (Pain Scale 4-6) 12/25/20 09:00 01/01/21 08:59 12/30/20 23:28 Docusate Sodium (Colace) 100 mg THREE TIMES A DAY ORAL 12/25/20 09:00 01/24/21 08:59 12/27/20 17:17 Enoxaparin Sodium (Lovenox) 40 mg DAILY SUBQ 12/25/20 09:00 01/04/21 08:59 12/30/20 08:37 Lidocaine (Lidoderm 5% PATCH) 1 patch DAILY TDERMAL 12/26/20 09:00 03/26/21 08:59 12/30/20 08:35 Magnesium Hydroxide (Mom) 30 ml DAILYPRN PRN ORAL Constipation 12/24/20 15:45 01/23/21 15:44 Metoprolol Succinate (Toprol XL) 25 mg DAILY ORAL 12/31/20 09:00 03/31/21 08:59 Morphine Sulfate (Morphine Sulfate) 2 mg Q4H PRN IVP severe pain 12/25/20 09:00 01/01/21 08:59 Ondansetron HCl (Zofran) 4 mg Q6H PRN IVP Nausea & Vomiting 12/24/20 15:45 01/23/21 15:44 Senna/Docusate Sodium (Graciela-Colace) 1 tab TWICE A DAY ORAL 12/25/20 09:00 01/24/21 08:59 12/27/20 17:17 Temazepam (RestoriL) 7.5 mg DAILYPRN PRN ORAL Insomnia 12/24/20 15:45 12/31/20 15:44 12/26/20 00:54 Last 24 Hour Vital Signs Date Time Temp Pulse Resp B/P (MAP) Pulse Ox O2 Delivery O2 Flow Rate FiO2 12/31/20 04:00 74 12/31/20 04:00 98.3 85 18 109/67 (81) 98 12/31/20 00:00 98.1 90 18 112/63 (79) 98 12/31/20 00:00 82 12/30/20 21:00 Room Air Room Air 12/30/20 20:00 97.3 83 18 119/69 (86) 98 12/30/20 16:00 83 12/30/20 16:00 98.4 90 18 113/64 (80) 98 12/30/20 12:00 98.3 85 16 104/81 (89) 98 12/30/20 12:00 80 12/30/20 09:00 Room Air Room Air 12/30/20 08:00 97.7 80 16 112/64 (80) 96 12/30/20 08:00 80 12/30/20 04:00 97.9 87 16 121/70 (87) 96 12/30/20 04:00 71 12/30/20 00:00 84 12/30/20 00:00 98.1 91 17 112/61 (78) 96 12/29/20 21:00 Room Air 12/29/20 20:00 98.4 84 18 119/68 (85) 94 12/29/20 20:00 88 12/29/20 16:00 98.8 86 18 107/50 (69) 93 12/29/20 16:00 87 12/29/20 12:00 88 12/29/20 12:00 98.1 84 18 110/57 (74) 96 12/29/20 09:00 Room Air 12/29/20 08:00 78 12/29/20 08:00 99.3 89 18 106/53 (70) 95 Intake and Output 12/30/20 12/31/20 19:00 07:00 Intake Total 500 ml 500 ml Balance 500 ml 500 ml Intake Oral 500 ml 500 ml # Voids 4 4 Height (Feet): 5 Height (Inches): 4.00 Weight (Pounds): 183 Objective Sp02 EP Interpretation: reviewed, normal General Appearance: no apparent distress, alert, non-toxic Head: normocephalic, atraumatic Eyes: bilateral eye normal inspection, bilateral eye PERRL Neck: full range of motion, supple/symm/no masses Respiratory: chest non-tender, lungs clear, normal breath sounds, speaking full sentences Cardiovascular : regular rate, rhythm, no edema Gastrointestinal: normal bowel sounds, non tender Rectal: deferred Genitourinary: normal inspection, no CVA tenderness Musculoskeletal: back normal, normal range of motion, gait/station normal, other Neurologic: alert, motor strength/tone normal, oriented x3, sensory intact Psychiatric: judgement/insight normal, memory normal Lymphatic: no adenopathy Rivera Hannah MD Dec 31, 2020 06:22
--- NOTE | 2020-12-31 07:27 | NUR ---
NURSE HAND-OFF REPORT: Important Events on Shift: PATIENT IN BED WATCHING TV ALERT TIME 3 NO COMPLAIN OF PAIN
[2020-12-31 08:00] VITALS: BP 100/50
--- NOTE | 2020-12-31 08:05 | General Progress Note ---
Subjective Date patient seen: Dec 31, 2020 Time patient seen: 07:15 - am Allergies: Coded Allergies: No Known Allergies (Unverified , 12/23/20) Subjective Constitutional: Reports: no symptoms HEENT: Reports: no symptoms Cardiovascular: Reports: no symptoms Respiratory: Reports: no symptoms Gastrointestinal/Abdominal: Reports: no symptoms Genitourinary: Reports: no symptoms Neurologic/Psychiatric: Reports: no symptoms Endocrine: Reports: no symptoms Hematologic/Lymphatic: Reports: no symptoms Subjective Patient showing no signs of pain or distress. Denies pain doing PT at the best of her abilities. Having no new complaints at this time. Objective Last 24 Hour Vital Signs Date Time Temp Pulse Resp B/P (MAP) Pulse Ox O2 Delivery O2 Flow Rate FiO2 12/31/20 04:00 74 12/31/20 04:00 98.3 85 18 109/67 (81) 98 12/31/20 00:00 98.1 90 18 112/63 (79) 98 12/31/20 00:00 82 12/30/20 21:00 Room Air Room Air 12/30/20 20:00 97.3 83 18 119/69 (86) 98 12/30/20 16:00 83 12/30/20 16:00 98.4 90 18 113/64 (80) 98 12/30/20 12:00 98.3 85 16 104/81 (89) 98 12/30/20 12:00 80 12/30/20 09:00 Room Air Room Air Intake and Output 12/30/20 12/31/20 19:00 07:00 Intake Total 500 ml 500 ml Balance 500 ml 500 ml Intake Oral 500 ml 500 ml # Voids 4 4 Height (Feet): 5 Height (Inches): 4.00 Weight (Pounds): 183 Objective General Appearance: no apparent distress, alert EENT: PERRL/EOMI, normal ENT inspection Neck: non-tender, normal alignment Cardiovascular: normal rate, regular rhythm Respiratory/Chest: lungs clear, normal breath sounds Abdomen: non tender, soft Extremities: swelling Edema: trace edema Neurologic: alert, oriented x 3 Assessment/Plan Assessment/Plan: (1) Right hip pain (2) Right hip fx s/p fall and ORIF Patient will be continued on the [place] and Morphine. D/w Dr. Boston and he concurred. Roberto Carlos Perry Dec 31, 2020 08:05
[2020-12-31] MEDS: Docusate Sod/Senna tab ORAL SCH (09:00)
[2020-12-31] MEDS ORDERED: Metoprolol Succinate XL 25mg tab ORAL SCH (09:00)
[2020-12-31] MEDS: Docusate 100mg cap ORAL SCH ×2 (09:00→13:00)
[2020-12-31 09:01] LABS: HEMATOCRIT 34.9 % (37.0-47.0); HEMOGLOBIN 11.2 G/DL (12.0-16.0); MEAN CORPUSCULAR VOLUME 103 FL (80-99); PLATELET COUNT 212 K/UL (150-450); RED BLOOD COUNT 3.38 M/UL (4.20-5.40); RED CELL DISTRIBUTION WIDTH 14.3 % (11.6-14.8); WHITE BLOOD COUNT 2.4 K/UL (4.8-10.8)
--- NOTE | 2020-12-31 09:04 | NUR ---
PT NOTE Attempted to see patient for PT treatment. Patient declining to participate with PT, states she is waiting for a phone call, possible discharge home today. Will get FWW and raised toilet seat for patient for home use. Hayden CANALES notified.
[2020-12-31 09:30] LABS: ANION GAP 8 mmol/L (5-15); BLOOD UREA NITROGEN 26 mg/dL (7-18); CALCIUM 9.7 MG/DL (8.5-10.1); CARBON DIOXIDE 29 MMOL/L (21-32); CHLORIDE 105 MMOL/L (98-107); CREATININE 0.8 MG/DL (0.55-1.30); POTASSIUM 3.9 MMOL/L (3.5-5.1); SODIUM 142 MMOL/L (136-145)
[2020-12-31] MEDS: Enoxaparin 40mg Inj SUBQ SCH (09:30)
--- NOTE | 2020-12-31 11:14 | NUR ---
*-*DISCHARGE PLANNING*-* PATIENT HAS BEEN REFERRED TO: [facility] P: [phone] S/W [place], CANNOT SERVICE PATIENT, DUE TO NOT CONTRACTED WITH THIS INSURANCE.
--- NOTE | 2020-12-31 11:16 | NUR ---
*-*DISCHARGE PLANNING*-* PLACED A CALL TO: WEN MURO OUT [facility] P: S/W DEMETRI WILL E-MAIL A CONTRACTED LIST FOR HOME HEALTH.
--- NOTE | 2020-12-31 11:53 | Cardiac Electrophysiology PN ---
Assessment/Plan Assessment/Plan 1. Status post mechanical fall resulting in right hip fracture. No known coronary artery disease, congestive heart failure, or prior myocardial infarction. Her 12-lead EKG showed sinus tachycardia at a rate of 107 with right bundle- branch block and left anterior fascicular block. Echocardiogram showed Nl EF. Fall could have been precipitated by SVT 2. Bifascicular block with right bundle-branch block and left anterior fasc icular block. 3. Recurrent SVT at rate 170-190s. Since didn't feel it likely has frequent episodes. Needs EPS and ablation specially that has bifascicular block and antiarrhythmics may worsen the heart block Agreeable to the procedure. Will do as out patient Added Toprol XL 25 po daily 4. History of ovarian cancer in 2019, status post surgery and chemotherapy at [facility]. 5. Leukopenia, white count of only 1.6. Further evaluation by Hematology. 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 Godoy and RN Subjective Subjective Had SVT of sudden onset and termination at 9 AM lasting more than 10 minutes with HR 190 on 12/25/20 Had successful ORIF of hip on 12/25/20 Had another episode of SVT at rate 170s at 8 am on 12/29/20 No SVT today. DC planning to home today with HH on Toprol Xl 25 Objective Last 24 Hour Vital Signs Date Time Temp Pulse Resp B/P (MAP) Pulse Ox O2 Delivery O2 Flow Rate FiO2 12/31/20 09:32 82 100/50 12/31/20 09:00 Room Air Room Air 12/31/20 08:00 83 12/31/20 08:00 97.7 82 16 100/50 (67) 96 12/31/20 04:00 74 12/31/20 04:00 98.3 85 18 109/67 (81) 98 12/31/20 00:00 98.1 90 18 112/63 (79) 98 12/31/20 00:00 82 12/30/20 21:00 Room Air Room Air 12/30/20 20:00 97.3 83 18 119/69 (86) 98 12/30/20 16:00 83 12/30/20 16:00 98.4 90 18 113/64 (80) 98 12/30/20 12:00 98.3 85 16 104/81 (89) 98 12/30/20 12:00 80 Intake and Output 12/30/20 12/31/20 19:00 07:00 Intake Total 500 ml 500 ml Balance 500 ml 500 ml Intake Oral 500 ml 500 ml # Voids 4 4 Laboratory Tests Test 12/31/20 08:17 White Blood Count 2.4 K/UL (4.8-10.8) L Red Blood Count 3.38 M/UL (4.20-5.40) L Hemoglobin 11.2 G/DL (12.0-16.0) L Hematocrit 34.9 % (37.0-47.0) L Mean Corpuscular Volume 103 FL (80-99) H Mean Corpuscular Hemoglobin 33.3 PG (27.0-31.0) H Mean Corpuscular Hemoglobin Concent 32.2 G/DL (32.0-36.0) Red Cell Distribution Width 14.3 % (11.6-14.8) Platelet Count 212 K/UL (150-450) Mean Platelet Volume 7.8 FL (6.5-10.1) Neutrophils (%) (Auto) % (45.0-75.0) Lymphocytes (%) (Auto) % (20.0-45.0) Monocytes (%) (Auto) % (1.0-10.0) Eosinophils (%) (Auto) % (0.0-3.0) Basophils (%) (Auto) % (0.0-2.0) Differential Total Cells Counted 100 Neutrophils % (Manual) 53 % (45-75) Lymphocytes % (Manual) 42 % (20-45) Monocytes % (Manual) 4 % (1-10) Eosinophils % (Manual) 1 % (0-3) Basophils % (Manual) 0 % (0-2) Band Neutrophils 0 % (0-8) Platelet Estimate Adequate Platelet Morphology Normal Macrocytosis 1+ Sodium Level 142 MMOL/L (136-145) Potassium Level 3.9 MMOL/L (3.5-5.1) Chloride Level 105 MMOL/L (98-107) Carbon Dioxide Level 29 MMOL/L (21-32) Anion Gap 8 mmol/L (5-15) Blood Urea Nitrogen 26 mg/dL (7-18) H Creatinine 0.8 MG/DL (0.55-1.30) Estimat Glomerular Filtration Rate > 60 mL/min (>60) Glucose Level 96 MG/DL (74-106) Calcium Level 9.7 MG/DL (8.5-10.1) Objective HEAD AND NECK: No JVD. LUNGS: Clear. CARDIOVASCULAR: Regular S1 and S2 with no gallop or murmur. ABDOMEN: Soft. EXTREMITIES: No pitting edema. S/P OROF hip Xavier Duncan MD Dec 31, 2020 11:53
[2020-12-31 12:00] VITALS: BP 112/71
--- NOTE | 2020-12-31 15:32 | NUR ---
*-*DISCHARGE PLANNED*-* PATIENT HAS BEEN ACCEPTED AND WILL BE SERVICED WITH: DR. RENAE [facility] P: [phone] S/W [place] WILL SERVICE PATIENT UPON DISCHARGE PLAN.
--- NOTE | 2020-12-31 16:15 | NUR ---
Patient discharged to home with home health. Discharge instructions given to patient. Home health information given to patient. Patient given prescription from Dr. Duncan for Metoprolol 25mg daily. Instructed patient to start medication tomorrow as she has already taken a dosage on today. Discussed discharge instructions with patient. IV removed with no complications. Telemetry removed from patient. Patient notified next of kin herself. Patient taken to [facility] via wheelchair at emergency room entrance.
--- NOTE | 2021-01-01 13:36 | Discharge Summary ---
Discharge Summary Discharge Summary _ Date of admission: 12/23/2020 Date of discharge: 12/31/[address] Godoy History of Present Illness and Brief Hospital Course Ms. Marin is a 70-year-old female with no reported past medical history who presented to the ED for evaluation of right hip pain after a mechanical fall. X-ray of the right hip showed probable impacted right femoral neck fracture. Patient was placed in a knee immobilizer. Patient denied head trauma. Patient was admitted to the hospital for further management. Patient underwent a closed reduction and percutaneous pinning of right femoral neck fracture. Patient tolerated the procedure well. The details of the procedure can be found in the operative note by Dr. Castle. 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 Patient also had recurrent SVT at rate of 170- 190s. Patient required EP study and ablation. Patient agreed to the procedure which will be scheduled as an outpatient. Patient was also found to have leukopenia with white counts of only 1.6. 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 Lynparza was held during her hospitalization. Patient was instructed to follow-up with Dr. Arias at [facility]. Patient was medically stable for discharge after the hip surgery. Patient was discharged home on 12/31/2020. Consultants: Cardiology Dr. Duncan Pain management RACHEL Velasco Hematology oncology Dr. Hannah Orthopedics Dr. Castle Discharge Condition Improved and stable Discharge Activity Advance as tolerated Final diagnoses Status post mechanical fall Right femoral neck fracture, valgus impacted, nondisplaced s/p closed reduction and percutaneous pinning of right femoral neck fracture Bifascicular block with right bundle branch block and left anterior fascicular block Recurrent SVT Leukopenia Pancytopenia Dehydration I have been assigned to dictate discharge summary for this account. I was not involved in the patient's management Callum Robertson Jan 01, 2021 13:36
== END 2020-12-31 16:15 | disposition home or self-care (01) | DRG 480 ==
LOC: EMR 22:12 → 4E 22:55 → EDBEDREQ 12-24 00:53 → 4E 12-24 02:09 → 2E 12-24 18:24 → 2W 12-24 20:27 → 2E 12-26 16:17
PROC: 0QS634Z Reposition Right Upper Femur with Internal Fixation Device, Percutaneous Approach (ICD-10-PCS; principal; 2020-12-23)
DX: S72.001A Fracture of unspecified part of neck of right femur, initial encounter for closed fracture (principal); D61.811 Other drug-induced pancytopenia; I45.2 Bifascicular block; I47.2 Ventricular tachycardia; Z94.81 Bone marrow transplant status; T50.995A Adverse effect of other drugs, medicaments and biological substances, initial encounter; W01.0XXA Fall on same level from slipping, tripping and stumbling without subsequent striking against object, initial encounter; Y92.481 Parking lot as the place of occurrence of the external cause; Z85.3 Personal history of malignant neoplasm of breast; E86.0 Dehydration; Z90.13 Acquired absence of bilateral breasts and nipples; Z85.43 Personal history of malignant neoplasm of ovary; D72.819 Decreased white blood cell count, unspecified
CPT/HCPCS: 36415; 76000; 80048; 80053; 80076; 82248; 83735; 84100; 85007; 85025; 85610; 93005; 93306; 94003; 94150; 96374; 99285; C9399; J2250; J8499